=== PATIENT | male | born 1950 | race Hispanic/Latino ===

== ENCOUNTER 2018-08-11 17:04 | Inpatient (IN) | payer MEDICARE, MEDICAID ==
--- NOTE | 2018-08-11 18:10 | ED PDOC ---
Arrival/HPI - History of Present Illness Narrative History of Present Illness (Text): 08/11/18 19:18 67 y/o male with PMH of bipolar presents to the ED with brother for psychiatric evaluation per his pyschiatrist Dr. Ahn for increased agitation. States he takes his seroquel and klonapin as prescribed before bed. Last saw his psychiatrist in June. C/o mild bilateral "rotator cuff pain" but refusing pain medication. Denies SI, HI, hallucination, chest pain, SOB, fevers, chills, abdominal pain, N/V/D, back pain, neck pain, headache, dizziness, or any other associated symptoms. <Anahi Pearce - Last Filed: 08/11/18 19:30> <Natasha Thomas A - Last Filed: 08/11/18 21:22> - General Chief Complaint: Psychiatric Evaluation Time Seen by Provider: 08/11/18 17:22 Past Medical History - Provider Review Nursing Documentation Reviewed: Yes <Anahi Pearce - Last Filed: 08/11/18 19:30> Family/Social History - Physician Review Nursing Documentation Reviewed: Yes Family/Social History: No Known Family HX <Anahi Pearce - Last Filed: 08/11/18 19:30> Allergies/Home Meds <Anahi Pearce - Last Filed: 08/11/18 19:30> <Natasha Thomas A - Last Filed: 08/11/18 21:22> Allergies/Adverse Reactions: Allergies No Known Allergies Allergy (Verified 08/11/18 18:27) Review of Systems - Physician Review All systems were reviewed & negative as marked: Yes - Review of Systems Constitutional: Normal. absent: Fevers Eyes: Normal. absent: Vision Changes ENT: Normal. absent: Sore Throat, Sinus Congestion Respiratory: Normal. absent: SOB, Cough Cardiovascular: Normal. absent: Chest Pain, Palpitations Gastrointestinal: Normal. absent: Abdominal Pain, Stool Changes, Nausea, Vomiting, Appetite Changes Genitourinary Male: Normal. absent: Dysuria, Frequency Musculoskeletal: Normal. absent: Back Pain, Neck Pain Skin: Normal. absent: Rash Neurological: Normal. absent: Headache, Dizziness, Focal Weakness Endocrine: Normal Hemo/Lymphatic: Normal Psychiatric: Normal <Anahi Pearce - Last Filed: 08/11/18 19:30> Physical Exam Vital Signs Reviewed: Yes Temperature: Afebrile Blood Pressure: Normal Pulse: Regular Respiratory Rate: Normal Appearance: Positive for: Well-Appearing, Non-Toxic, Comfortable Pain Distress: None Mental Status: Positive for: Alert and Oriented X 3, Agitated - Systems Exam Head: Present: Atraumatic, Normocephalic Pupils: Present: PERRL Extroacular Muscles: Present: EOMI Conjunctiva: Present: Normal Mouth: Present: Moist Mucous Membranes Neck: Present: Normal Range of Motion Respiratory/Chest: Present: Clear to Auscultation, Good Air Exchange. No: Respiratory Distress, Accessory Muscle Use Cardiovascular: Present: Regular Rate and Rhythm, Normal S1, S2. No: Murmurs Abdomen: Present: Normal Bowel Sounds. No: Tenderness, Distention, Peritoneal Signs Back: Present: Normal Inspection Upper Extremity: Present: Normal Inspection, Normal ROM, NORMAL PULSES, Neurovascularly Intact, Capillary Refill < 2s. No: Cyanosis, Edema, Temperature Abnormalties Lower Extremity: Present: Normal Inspection, NORMAL PULSES, Normal ROM, Neurovascularly Intact, Capillary Refill < 2 s. No: Edema, Temperature Abnormalties Neurological: Present: GCS=15, CN II-XII Intact, Speech Normal, Motor Func Grossly Intact, Normal Sensory Function, Gait Normal Skin: Present: Warm, Dry, Normal Color. No: Rashes Lymphatic: No: Cervical Adenopathy Psychiatric: Present: Alert, Oriented x 3, Anxious, Agitated, Other (Manic, speaking in fast short sentences.). No: Suicidal Ideation, Homicidal Ideation <Anahi Pearce - Last Filed: 08/11/18 19:30> Medical Decision Making ED Course and Treatment: 08/11/18 19:30 Initial Plan: * CBC, CMP * Alcohol, salicylate, acetaminophen * EKG * CXR * PES Evaluation Labwork unremarkable. 20:00 Patient care signed out to Natasha Thomas PA-C pending PES evaluation, urine, EKG, and CXR. Patient made aware of change in disposition. <Anahi Pearce - Last Filed: 08/11/18 19:30> - Lab Interpretations Lab Results: Total Bilirubin 0.7 mg/dL (0.2-1.3) 08/11/18 19:18 AST 26 U/L (17-59) 08/11/18 19:18 ALT 31 U/L (7-56) 08/11/18 19:18 Alkaline Phosphatase 79 U/L (38-126) 08/11/18 19:18 Total Protein 7.9 g/dL (5.8-8.3) 08/11/18 19:18 Albumin 4.4 g/dL (3.0-4.8) 08/11/18 19:18 Globulin 3.4 gm/dL 08/11/18 19:18 Albumin/Globulin Ratio 1.3 (1.1-1.8) 08/11/18 19:18 Urine Color Yellow (YELLOW) 08/11/18 20:27 Urine Appearance Sl cloudy (CLEAR) 08/11/18 20:27 Urine pH 6.5 (4.7-8.0) 08/11/18 20:27 Ur Specific [place] 1.020 (1.005-1.035) 08/11/18 20:27 Urine Protein Trace mg/dL (<30 mg/dL) H 08/11/18 20:27 Urine Glucose (UA) Negative mg/dL (NEGATIVE) 08/11/18 20:27 Urine Ketones Negative mg/dL (NEGATIVE) 08/11/18 20:27 Urine Blood Large (NEGATIVE) H 08/11/18 20:27 Urine Nitrate Negative (NEGATIVE) 08/11/18 20:27 Urine Bilirubin Negative (NEGATIVE) 08/11/18 20:27 Urine Urobilinogen 0.2 E.U./dL (<1 E.U./dL) 08/11/18 20:27 Ur Leukocyte Esterase Large Jossue/uL (NEGATIVE) H 08/11/18 20:27 Urine RBC Tntc /hpf (0-2) H 08/11/18 20:27 Urine WBC 15 - 20 /hpf (0-6) H 08/11/18 20:27 Ur Epithelial Cells Many /hpf (0-5) H 08/11/18 20:27 - RAD Interpretation Radiology Orders: 08/11/18 18:33 CHEST PORTABLE [RAD] Stat - Medication Orders Current Medication Orders: Acetaminophen (Tylenol 325mg Tab) 650 mg PO Q4H PRN PRN Reason: Pain, Mild (1-3) Al Hydrox/Mg Hydrox/Simethicone (Maalox Plus 30 Ml) 30 ml PO DAILY PRN PRN Reason: Upset Stomach Cephalexin Monohydrate (Keflex) 500 mg PO STAT STA; Protocol Stop: 08/11/18 21:21 Clonazepam (Klonopin) 2 mg PO HS MITCHELL; Protocol Magnesium Hydroxide (Milk Of Magnesia) 30 ml PO DAILY PRN PRN Reason: Constipation Quetiapine Fumarate (Seroquel) 100 mg PO HS MITCHELL; Protocol <WilliamHappiness A - Last Filed: 08/11/18 21:22> Disposition/Present on Arrival <Anahi Pearce - Last Filed: 08/11/18 19:30> - Present on Arrival Any Indicators Present on Arrival: No History of DVT/PE: No History of Uncontrolled Diabetes: No Urinary Catheter: No History of Decub. Ulcer: No History Surgical Site Infection Following: None - Disposition Have Diagnosis and Disposition been Completed?: Yes Disposition Time: 21:20 Patient Plan: Admission <Natasha Thomas A - Last Filed: 08/11/18 21:22> - Disposition Diagnosis: Bipolar 1 disorder Disposition: HOSPITALIZED Condition: FAIR Forms: [employer] (Senegalese)
[2018-08-11 18:27] VITALS: BMI 26.4
[2018-08-11 19:26] LABS: BASO # 0.01 K/mm3 (0.0-2.0); BASO % 0.1 % (0.0-3.0); EOS # 0.1 (0.0-0.7); EOS % 0.9 % (1.5-5.0); HEMOGLOBIN 15.1 g/dL (14.0-18.0); LYMPH # 2.8 (1.2-3.4); LYMPH % 33.6 % (22.0-35.0); MEAN CELL VOLUME 88.5 fl (80.0-105.0); MEAN CORPUSCULAR HGB CONC 33.9 g/dl (31.0-37.0); MEAN PLATELET VOLUME 10.4 fl (7.0-11.0); MONO # 0.6 (0.1-0.6); MONO % 7.4 % (1.0-6.0); RBC 5.04 10^6/uL (3.5-6.1); RED CELL DISTRIBUTION WIDTH 13.8 % (11.5-14.5); WHITE BLOOD COUNT 8.2 10^3/uL (4.5-11.0)
[2018-08-11 19:46] LABS: ACETAMINOPHEN < 10.0 ug/ml (10.0-20.0); SALICYLATE < 1 mg/dL (2.0-20.0)
[2018-08-11 19:48] LABS: ALB/GLOB RATIO 1.3 (1.1-1.8); ALBUMIN 4.4 g/dL (3.0-4.8); ALT/SGPT 31 U/L (7-56); AST/SGOT 26 U/L (17-59); BLOOD UREA NITROGEN 19 mg/dL (7-21); CALCIUM 10.3 mg/dL (8.4-10.5); GFR NON-AFRICAN AMERICAN > 60
[2018-08-11] MEDS ORDERED: Magnesium Hydroxide Susp 30 ml UD PO PRN (20:14)
[2018-08-11 20:31] LABS: PH,URINE 6.5 (4.7-8.0); URINE APPEARANCE SL CLOUDY (CLEAR); URINE BILIRUBIN NEGATIVE (NEGATIVE); URINE BLOOD LARGE (NEGATIVE); URINE COLOR YELLOW (YELLOW); URINE GLUCOSE (UA) NEGATIVE (NEGATIVE); URINE LEUKOCYTE ESTERASE LARGE Leu/uL (NEGATIVE); URINE PROTEIN TRACE mg/dL (<30 mg/dL); URINE UROBILINOGEN 0.2 E.U./dL (<1 E.U./dL)
[2018-08-11 20:36] LABS: URINE EPITHELIAL CELLS MANY /hpf (0-5); URINE RBC TNTC /hpf (0-2); URINE WBC 15 - 20 /hpf (0-6)
[2018-08-11 20:57] LABS: BARBITURATES, UR NEGATIVE (NEGATIVE); BENZODIAZEPINES, UR NEGATIVE (NEGATIVE); OPIATES, UR NEGATIVE (NEGATIVE); PHENCYCLIDINE, UR NEGATIVE (NEGATIVE)
[2018-08-11 23:06] VITALS: O2SAT 98
--- NOTE | 2018-08-12 00:47 | PCM.BM ---
<Laci Loaiza - Last Filed: 08/12/18 00:44> Treatment Plan Problems - Problems identified on initial assessmt AGITATION/AGGRESSIVE BEHAVIOR Date Initiated: 08/11/18 Time Initiated: 23:00 Assessment reference: NA Status: Active Priority: 1 INEFFECTIVE IMPULSE CONROL Date Initiated: 08/11/18 Time Initiated: 23:00 Assessment reference: NA Status: Active Priority: 2 HIGH RISK OF VIOLENCE Date Initiated: 08/11/18 Time Initiated: 23:00 Assessment reference: NA Status: Active Priority: 3 INEFFECIVE MEDICATION REGIMEN Date Initiated: 08/11/18 Time Initiated: 23:00 Assessment reference: NA Status: Active Priority: 4 Treatment assets and liabiliti Patient Assests: adapts well, cooperative, educated, self-reliant, ADL independent, physically healthy, negotiates basic needs, financial stabiity, cognitively intact Patient Liabilities: live alone, poor support system, relationship conflicts - Milieu Protocol Maintain good personal hygiene: every other day Encourage regular showers, every shift Remind patient to perform daily oral care, every shift Assist patient to perform ADL's Maintain personal safety: every shift Educate patient to report safety concerns to staff, every shift Monitor environment for contraband/sharps Medication safety: Monitor for expected outcome, potential side effects: every shift Family Contact Family involvement: Patient does not wish Family/SO involvement Family contact: Patient declines to allow family contact at present <Luisa Srinivasan - Last Filed: 08/13/18 14:39> Family Contact Family involvement: Family/SO is involved <Priscila Gonzalez - Last Filed: 08/14/18 12:01>
[2018-08-12 08:05] LABS: GLUCOSE,FASTING 92 mg/dL (65-110); HDL CHOLESTEROL 51 mg/dL (29-60)
[2018-08-12 08:15] LABS: LDL CHOLESTEROL 76 mg/dL (0-129)
--- NOTE | 2018-08-12 11:01 | CARD ---
APPROVED REPORT Date of service: 08/11/2018 EKG Measurement Heart [id number] <Conclusion> Normal sinus rhythm Normal ECG
--- NOTE | 2018-08-12 14:17 | RAD ---
Date of service: 08/11/2018 HISTORY: psych COMPARISON: No prior. FINDINGS: LUNGS: Dense right lower lobe infiltrate consistent with pneumonia. PLEURA: No significant pleural effusion identified, no pneumothorax apparent. CARDIOVASCULAR: No atherosclerotic calcification present Normal. OSSEOUS STRUCTURES: No significant abnormalities. VISUALIZED UPPER ABDOMEN: Normal. OTHER FINDINGS: None. IMPRESSION: Extensive right lower lobe infiltrate likely acute pneumonia. Follow-up to resolution recommended.
--- NOTE | 2018-08-12 20:56 | CON ---
DATE: 08/12/2018 HISTORY OF PRESENT ILLNESS: This is a 67-year-old male, who I was asked to see, who was admitted to the Psychiatry Unit by Dr. Beau Lopez for underlying bipolar disorder. ALLERGIES: THE PATIENT STATES THAT HE HAS NO KNOWN ALLERGIES. MEDICATIONS: His active medications consist of Klonopin 2 mg at bedtime, Maalox Plus 30 mL p.r.n. daily, magnesium, milk of magnesia 30 mL daily p.r.n., Protonix 40 mg at bedtime, Seroquel 200 mg a.m. at bedtime, Seroquel 50 mg every 4 hours p.r.n., and Tylenol 650 mg p.o. every 4 hours p.r.n. SOCIAL HISTORY: He gives a social history where he states he is a nonsmoker, nondrinker. PAST MEDICAL HISTORY: His medical history he states that he in 2009 had an esophageal surgical procedure for esophageal cancer at [facility] subsequently treated with chemotherapy afterwards. He states that he has not seen a film processing utility worker recently, but recently planned on seeing one in [place] by the name of Dr. Conway. He sees a medical doctor in [place]. PHYSICAL EXAMINATION: VITAL SIGNS: His temperature is 98.7, his blood pressure is 120/78, his respiratory rate is 20. His oxygen saturation is reported 98% on room air. NECK: His neck is supple. LUNGS: His lungs show rhonchi with diminished breath sounds at the right. HEART: S1, S2 rhythm. ABDOMEN: Soft with positive bowel sounds. EXTREMITIES: At this time show no evidence of edema. NEURO: Neurologically he is alert and oriented x3. He denies any particular medical complaints at this time. LABORATORY DATA: WBC is 8.2, RBC is 5.04, hemoglobin 15.1, hematocrit 44.6, platelet count is 215. Chemistry shows normal electrolytes. The BUN is 19, the creatinine is 1, calcium is 10.3. Fasting blood sugar is 92. LFTs are normal. His TSH is 4.05. Cholesterol is 145, triglycerides 50, HDL is 51. LFTs are normal. Drug screen is negative. Urinalysis is showing trace protein, large blood, large leukocyte esterase, too numerous to count rbc's, 15-20 wbc's, and many epithelial cells. Chest x-ray is reported by the radiologist to show a dense right lower lobe infiltrate consistent with pneumonia. His electrocardiogram reported showing a normal sinus rhythm. In the emergency room, he was given a dose of Keflex 500 mg p.o. Urine culture was reordered. IMPRESSION: This is a 67-year-old male, admitted to the psychiatric unit for bipolar disorder, found to have; 1. An abnormal urinalysis. 2. An abnormal chest x-ray. PLAN: 1. I have discussed the case with the staff and with Dr. Lopez as well as with Urology and Infectious Disease. We will request evaluations. PSA, urine cytology, urinalysis, repeat urine culture, ultrasound of the bladder with postvoid residual, ultrasound of the kidneys, urine cytology. 2. Follow up the patient's labs. 3. We will follow the patient clinically and await input from the individual consultants at this time. Further treatment plan pending the results of diagnostic studies and then any further information that the patient may offer. Thank you for allowing to participate in the care of this patient. Marielos Lamb MD
[2018-08-12] MEDS: Pantoprazole 40 mg EC Tab PO SCH (21:31)
[2018-08-12 22:13] LABS: URINE BILIRUBIN NEGATIVE (NEGATIVE); URINE BLOOD MODERATE (NEGATIVE); URINE GLUCOSE (UA) NEGATIVE (NEGATIVE); URINE LEUKOCYTE ESTERASE LARGE Leu/uL (NEGATIVE); URINE PROTEIN TRACE mg/dL (<30 mg/dL); URINE UROBILINOGEN 0.2 E.U./dL (<1 E.U./dL)
[2018-08-12 22:17] LABS: URINE APPEARANCE CLOUDY (CLEAR); URINE COLOR YELLOW (YELLOW); URINE RBC 25 - 30 /hpf (0-2); URINE WBC TNTC /hpf (0-6)
--- NOTE | 2018-08-12 23:41 | PCM.URO ---
Urology Progress Note - Subjective Other: gu plans: cytology, urine culture, ultrasound ,. will need follow up most mattkly as an out pt. full note to be dictated - Objective Lab Results Last 24 Hours: Laboratory Results - last 24 hr 08/12/18 08/12/18 08/12/18 07:30 07:30 15:00 Fasting Glucose 92 Triglycerides 50 Cholesterol 145 LDL Cholesterol Direct 76 HDL Cholesterol 51 Prostate Specific Ag 2.7 H TSH 3rd Generation 4.05 Urine Color Urine Appearance Urine pH Ur Specific [place] Urine Protein Urine Glucose (UA) Urine Ketones Urine Blood Urine Nitrate Urine Bilirubin Urine Urobilinogen Ur Leukocyte Esterase Urine RBC Urine WBC Ur Epithelial Cells 08/12/18 22:10 Fasting Glucose Triglycerides Cholesterol LDL Cholesterol Direct HDL Cholesterol Prostate Specific Ag TSH 3rd Generation Urine Color Yellow Urine Appearance Cloudy Urine pH 6.0 Ur Specific [place] 1.020 Urine Protein Trace H Urine Glucose (UA) Negative Urine Ketones Negative Urine Blood Moderate H Urine Nitrate Negative Urine Bilirubin Negative Urine Urobilinogen 0.2 Ur Leukocyte Esterase Large H Urine RBC 25 - 30 H Urine WBC Tntc H Ur Epithelial Cells 3 - 4 Vital Signs: Vital Signs - 24 hr 08/11/18 08/12/18 23:40 16:00 Pulse Rate 71 Respiratory 20 Rate Blood Pressure 120/78
[2018-08-13 08:18] LABS: BASO # 0.01 K/mm3 (0.0-2.0); BASO % 0.2 % (0.0-3.0); EOS # 0.2 (0.0-0.7); HEMOGLOBIN 15.5 g/dL (14.0-18.0); LYMPH # 3.4 (1.2-3.4); LYMPH % 55.5 % (22.0-35.0); MEAN CELL VOLUME 88.5 fl (80.0-105.0); MEAN CORPUSCULAR HEMOGLOBIN 29.7 pg (25.0-35.0); MEAN CORPUSCULAR HGB CONC 33.5 g/dl (31.0-37.0); MONO # 0.6 (0.1-0.6); MONO % 10.5 % (1.0-6.0); RBC 5.22 10^6/uL (3.5-6.1); RED CELL DISTRIBUTION WIDTH 13.7 % (11.5-14.5); WHITE BLOOD COUNT 6.1 10^3/uL (4.5-11.0)
[2018-08-13 08:32] LABS: ALB/GLOB RATIO 1.3 (1.1-1.8); ALBUMIN 4.4 g/dL (3.0-4.8); ALT/SGPT 31 U/L (7-56); AST/SGOT 26 U/L (17-59); BLOOD UREA NITROGEN 16 mg/dL (7-21); CALCIUM 10.2 mg/dL (8.4-10.5); GFR NON-AFRICAN AMERICAN > 60
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
[2018-08-13] MEDS: Cefpodoxime (Vantin) 200 mg Tab PO SCH ×2 (10:35→17:49)
--- NOTE | 2018-08-13 13:39 | PN ---
DATE: 08/13/2018 SUBJECTIVE: A 67-year-old male on the Psychiatry Unit. The patient is being admitted for bipolar disorder. OBJECTIVE: VITAL SIGNS: His temperature is 97.8, his blood pressure is 120/78, respiratory rate is 18, oxygen saturation is 98% on room air. GENERAL: He is alert and oriented x3. LUNGS: Show rhonchi at the base, right. HEART: S1, S2. ABDOMEN: Soft with positive bowel sounds. EXTREMITIES: No evidence of edema. LABORATORY DATA: Shows a WBC of 6.1, RBC 5.22, hemoglobin 15.5, hematocrit 46.2, platelet count 188. Chemistry shows a sodium 139, potassium 4.9, chloride 104, CO2 of 31. The BUN is 16, creatinine is 1. LFTs are normal. His prostate-specific antigen is 2.7. Repeat urinalysis shows large leukocyte esterase with 25-30 rbc's, too numerous to count wbc's, moderate blood. ASSESSMENT AND PLAN: Currently, the patient is on Doryx 100 mg every 12 hours and Vantin 200 mg every 12 hours. Microbiological studies are pending. He is found to have had a urinary tract infection with infiltrate on the right lung. He will continue on his psychiatry medications, being followed by Dr. Lopez, we will await identification of microbiological studies. All clinical findings to date have been discussed with the patient. Marielos Lamb MD
--- NOTE | 2018-08-13 14:51 | US ---
Date of service: 08/12/2018 PROCEDURE: Ultrasound of the Kidneys HISTORY: microscopic heamaturia COMPARISON: None available. TECHNIQUE: Sonogram of the kidneys. FINDINGS: RIGHT KIDNEY: Measures: cm. Normal in size, contour and echogenicity. No stone, solid mass lesion or hydronephrosis visualized. LEFT KIDNEY: Measures: cm. Normal in size, contour and echogenicity. No stone, solid mass lesion or hydronephrosis visualized. OTHER FINDINGS: Bilateral renal cysts measure up to 3.9 centimeters in the right lower pole and 6.2 centimeters in the upper pole. IMPRESSION: Bilateral renal cysts measure up to 3.9 centimeters in the right lower pole and 6.2 centimeters in the upper pole.
--- NOTE | 2018-08-13 14:52 | US ---
Date of service: 08/12/2018 PROCEDURE: Ultrasound of the Bladder HISTORY: microscopic heamaturia/ post void residual COMPARISON: None available. TECHNIQUE: Sonographic evaluation of the bladder was performed. FINDINGS: Unremarkable without wall thickening or intraluminal debris. No calculus or gross mass lesion. No free fluid in pelvis. Prevoid Volume: 1673 cc. Post void residual: 504 cc. Bladder jets not visualized. IMPRESSION: Large postvoid residual.
--- NOTE | 2018-08-13 15:15 | CT ---
Date of service: 08/13/2018 PROCEDURE: CT Chest without contrast HISTORY: r/o pneumonia COMPARISON: None available. TECHNIQUE: Contiguous axial images were obtained through the chest without intravenous contrast enhancement. Sagittal and coronal reconstructions were performed. Radiation dose: Total exam DLP = 362.86 mGy-cm. This CT exam was performed using one or more of the following dose reduction techniques: Automated exposure control, adjustment of the mA and/or kV according to patient size, and/or use of iterative reconstruction technique. FINDINGS: LUNGS: Clear lungs. Visualized airway clear MEDIASTINUM: Unremarkable thoracic aorta. No aneurysm. Normal sized heart. Status post esophagectomy and gastric interposition. No lymphadenopathy. No aortic atherosclerotic calcification. PLEURA: No pleural fluid. No pneumothorax. BONES: No fracture. No destructive lesion. UPPER ABDOMEN: 5.4 centimeter left upper pole renal cyst. OTHER FINDINGS: None. IMPRESSION: Status post esophagectomy and gastric interposition. No evidence of pneumonia.
[2018-08-13] MEDS: Pantoprazole 40 mg EC Tab PO SCH (21:33)
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
[2018-08-14] MEDS: Cefpodoxime (Vantin) 200 mg Tab PO SCH (07:02)
--- NOTE | 2018-08-14 14:21 | CP.PCM.PN ---
Subjective - Date & Time of Evaluation Date of Evaluation: 08/14/18 Time of Evaluation: 11:30 - Subjective Subjective: Comfortable, no cough, no fevers, has some urinary retention, no nausea, no diarrhea. Objective - Vital Signs/Intake and Output Vital Signs (last 24 hours): Temp Pulse Resp BP Pulse Ox 97.8 F 81 18 117/86 98 08/13/18 06:58 08/13/18 16:00 08/13/18 06:58 08/13/18 16:00 08/11/18 22:45 - Medications Medications: Current Medications Acetaminophen (Tylenol 325mg Tab) 650 mg PO Q4H PRN PRN Reason: Pain, Mild (1-3) Al Hydrox/Mg Hydrox/Simethicone (Maalox Plus 30 Ml) 30 ml PO DAILY PRN PRN Reason: Upset Stomach Cefpodoxime Proxetil (Vantin) 200 mg PO Q12 [facility]; Protocol Last Admin: 08/14/18 07:02 Dose: 200 mg Clonazepam (Klonopin) 2 mg PO HS [facility]; Protocol Last Admin: 08/13/18 21:33 Dose: 2 mg Doxycycline Hyclate (Doryx) 100 mg PO Q12 [facility]; Protocol Last Admin: 08/14/18 07:01 Dose: 100 mg Magnesium Hydroxide (Milk Of Magnesia) 30 ml PO DAILY PRN PRN Reason: Constipation Pantoprazole Sodium (Protonix Ec Tab) 40 mg PO HS [facility] Last Admin: 08/13/18 21:33 Dose: 40 mg Quetiapine Fumarate (Seroquel) 50 mg PO Q4H PRN; Protocol PRN Reason: Agitation Quetiapine Fumarate (Seroquel) 300 mg PO AMHS [facility]; Protocol Last Admin: 08/13/18 21:33 Dose: 300 mg - Labs Labs: 08/13/18 08:00 08/13/18 08:00 - Constitutional Appears: Chronically Ill - Head Exam Head Exam: NORMAL INSPECTION - Neck Exam Neck Exam: absent: Meningismus - Respiratory Exam Respiratory Exam: Decreased Breath Sounds - Cardiovascular Exam Cardiovascular Exam: +S1, +S2 - GI/Abdominal Exam GI & Abdominal Exam: Soft. absent: Tenderness Assessment and Plan - Assessment and Plan (Free Text) Plan: assessment consider Staph lugdunensis UTI in this patient with urinary retention no pneumonia noted on CT chest - shadow noted on CXR probable from the stomach pulled up after esophagectomy esophageal cancer S/P esophagectomy bipolar disorder Plan will switch antibiotics to Keflex patient will be seen by Urology after his stay in the Psych unit as per Dr. Lamb will monitor clinically
[2018-08-14 16:49] LABS: TOTAL PSA 3.1 ng/mL (< or = 4.0)
--- NOTE | 2018-08-14 18:02 | PN ---
DATE: 08/14/2018 SUBJECTIVE: This is 67-year-old male on the psychiatry unit, patient of Dr. Lopez. The patient is being treated for exacerbation of his bipolar disorder. OBJECTIVE: VITAL SIGNS: His temp is 98.1, his pulse is 81, blood pressure is 117/86, respiratory rate is 18. GENERAL: He offers no specific complaints this morning. LUNGS: Show diminished breath sounds at the bases. HEART: In S1, S2 rhythm. ABDOMEN: Soft with positive bowel sounds. EXTREMITIES: Shows no evidence of edema. LABORATORY DATA: Microbiological studies show a urine culture growing a Staphylococcus lugdunensis. His procalcitonin is 0.05. His TSH is 4.05. ASSESSMENT AND PLAN: He had a chest CT which showed no evidence of pneumonia and the radiologist states that the finding on the chest x-ray room relates to his esophageal surgery for cancer with a gastric pull-up. This was explained to the patient. I have spoken to the urologist Dr. Johnny Toney who is aware of the findings of the bladder ultrasound with the postvoid residual. He recommends starting the patient on Flomax at this time and continuing antibiotics to treat the urinary tract infection and this has been discussed with Infectious Disease. It has also been discussed with Dr. Lopez. Continue current level of care. Marielos Lamb MD
[2018-08-14] MEDS: Pantoprazole 40 mg EC Tab PO SCH (21:47)
--- NOTE | 2018-08-14 23:30 | PCM.PYCHPN ---
Psychiatric Progress Note - Psychiatric Progress Note Patient seen today, length of contact: 30min Patient Chief Complaint: Patient has been under my care for more than 20 years. His brother who often supervise him and help support him financially expressed concern as the patient had become more agitated and paranoid over the past 2-3 weeks. Several events had interceded the. The last model department supervisor of the living residency where he resides in [facility] she expressed concern about his [place] bizarre behavior which consisted of pacing, agitation and some paranoia. The brother is subsequently found that he received a head animal keeper as a letter from the [employer] although he is not sure of the content. Patient has told nursing here that he may have been accused of sexual harassment. 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 He has on occasion become very agitated simulating either a bipolar disorder or a chronic paranoid schizophrenic disorder although these latter 2 diagnoses may be too s evere and not capture the full thrust of the patient's behavioral repertoire. He was last hospitalized approximately 20-30 years ago (I will check my records) In the past he has been resentful the parenting by his parents, the perceived favoritism given to his brother who appears to be more functional (and is a licensed master social worker at [facility] psychiatric unit). He has seen numerous mental health workers in psychotherapy and several psychiatrists. He has held a number of jobs. He has often wanted to have a significant relationship but his odd, eccentric, abrasive behavior has prevented this from happening. In the pace past several years he has been treated for esophageal cancer at [facility]. Problems Identified/Issues Discussed: Patient remains paranoid, angry, with pressured speech, much rationalization and denial He was interviewed and treatment team. He makes accusations and that his brother and the disposition are in cahoots to get money out of him. The He had some difficulties with the [employer] that necessitated that they send him a business law teacher letter, the content of which is unknown (but for which his brother is trying to gain a copy of them ( The patient can be intimidating in his agitation. He does not appear to be overtly sexually preoccupied, at least to the extent that he does not focus on or talk about sexual issues unless specifically asked (a such as an old girlfriend pinching his genitals) Medical Problems: These appear to be not as problematic problematic as initially thought He is a cancer (esophageal) survivor. His pulmonary status is being monitored by Dr. Lamb as well as his urologic status. Diagnostic Results: Results of lung imaging do not presently show pneumonia DSM 5 Symptoms Update: Patient remains on the verge of hostility. Is angry, paranoid, condescending, accusatory that I am involved in a financial plot with his brother. Speech somewhat pressured. Seems to be tolerating high dose of Seroquel which has yet to induce its desired effect on tapering patient's level of agitation and hostility. Medication Change: Yes (Seroquel dose increased) Medical Record Reviewed: Yes Consults ordered or reviewed: Pulmonology, internal medicine consults reviewed Mental Status Examination - Cognitive Function Orientation: Person, Place, Situation, Time Memory: Intact Attention: WNL Concentration: WNL Association: WNL Fund of Knowledge: [facility] Decription of patient's judgement and insights: Patient has poor insight and poor judgment and much denial about his present state and is not willing to talk about potential precipitants to his present altered mental status - Mood Mood: Anxious, Other - Affect Affect: Other - Speech Speech: Loud, Pressured - Formal Thought Process Formal Thought Process: Paranoia, Other Psychotic Thoughts and Behaviors: Patient's paranoia may be delusional in intensity - Suicidal Ideation Suicidal Ideation: No - Homicidal Ideation Homicidal Ideation: No Goal/Treatment Plan - Goal/Treatment Plan Progress Toward Problem(s) and Goals/Treatment Plan: Will adjust medication and get further details of recent potential precipitants to patient's present problematic behavior Patient remains agitated, with pressured speech, angry, accusatory. His Seroquel doses have been increased On August 14 have reviewed both nursing notes and notes from social work. Plans for discharge are premature at this juncture given the patient's levelofin . Stability. This may be the most sustained period of agitation I have experienced in my course of treatment with this patient
[2018-08-15] MEDS: Alum-Mag Hydrox-Simethicone Susp (30 mL) PO PRN (03:08)
--- NOTE | 2018-08-15 10:21 | PN ---
DATE: 08/15/2018 SUBJECTIVE: Nursing staff relates that there were no problems during the night. OBJECTIVE: VITAL SIGNS: His temperature is 98.2, his pulse is 69, his blood pressure is 114/86, respiratory rate is 20. LABORATORY DATA: 1. Microbiological studies show a urine culture with Staphylococcus lugdunensis. He is currently being followed by Infectious Disease and has been placed on Keflex. 2. After discussion with Urology regarding diagnostic study results, it has been recommended that the patient be placed on Flomax, treat the urinary tract infection and then follow up with urology. This has been fully discussed with the patient. Also he is aware that the CAT scan of the chest did not show any evidence of pneumonia. 3. We also discussed the fact that he is to continue his care at this time with Dr. Lopez in the medical management. He seems to understand everything at this point and will continue current level of care. Marielos Lamb MD
--- NOTE | 2018-08-15 13:47 | PCM.PYCHPN ---
Psychiatric Progress Note - Psychiatric Progress Note Patient seen today, length of contact: 30min Patient Chief Complaint: Patient has been under my care for more than 20 years. His brother who often supervise him and help support him financially expressed concern as the patient had become more agitated and paranoid over the past 2-3 weeks. Several events had interceded the. The hotel or motel cleaning supervisor of the living residency where he resides in [facility] she expressed concern about his [place] bizarre behavior which consisted of pacing, agitation and some paranoia. The brother is subsequently found that he received a mission systems engineer as a letter from the [employer] although he is not sure of the content. Patient has told nursing here that he may have been accused of sexual harassment. 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 He has on occasion become very agitated simulating either a bipolar disorder or a chronic paranoid schizophrenic disorder although these latter 2 diagnoses may be too s evere and not capture the full thrust of the patient's behavioral repertoire. He was last hospitalized approximately 20-30 years ago (I will check my records) In the past he has been resentful the parenting by his parents, the perceived favoritism given to his brother who appears to be more functional (and is a director social at [facility] psychiatric unit). He has seen numerous mental health workers in psychotherapy and several psychiatrists. He has held a number of jobs. He has often wanted to have a significant relationship but his odd, eccentric, abrasive behavior has prevented this from happening. In the pace past several years he has been treated for esophageal cancer at [facility]. Problems Identified/Issues Discussed: Patient remains paranoid, angry, with pressured speech, much rationalization and denial He was interviewed and treatment team. He makes accusations and that his brother and the disposition are in cahoots to get money out of him. The He had some difficulties with the [employer] that necessitated that they send him a database reporting consultant letter, the content of which is unknown (but for which his brother is trying to gain a copy of them ( The patient can be intimidating in his agitation. He does not appear to be overtly sexually preoccupied, at least to the extent that he does not focus on or talk about sexual issues unless specifically asked (a such as an old girlfriend pinching his genitals) Medical Problems: These appear to be not as problematic problematic as initially thought He is a cancer (esophageal) survivor. His pulmonary status is being monitored by Dr. Lamb as well as his urologic status. Diagnostic Results: Results of lung imaging do not presently show pneumonia DSM 5 Symptoms Update: While the patient is less agitated presently he remains paranoid. He is accusing the hospital of having stolen at least 1 of his emetics at medicines when he came into the emergency room. He is indicating that when he leaves the hospital he will call the police who will launch an investigation etc. I have reviewed his situation with social work. She has been in touch with the patient's brother and we have learned that the patient was accused of sexual harassment of a adolescent to the [employer] and received a letter of accusation or warning from that young adults mission systems engineer. This legal involvement may be a major source of the patient's present exacerbation or relapse of his psychiatric disorder, be it paranoid schizophrenia or paranoid personality. He does seem to be calming down at least regarding his anger level and intrusiveness with high dose of Seroquel but he presently remains paranoid and can still be easily excited. Medication Change: Yes (Seroquel dose increased) Medical Record Reviewed: Yes Consults ordered or reviewed: Pulmonology, internal medicine consults reviewed Mental Status Examination - Cognitive Function Orientation: Person, Place, Situation, Time Memory: Intact Attention: WNL Concentration: WNL Association: WNL Fund of Knowledge: WN Decription of patient's judgement and insights: Patient has poor insight and poor judgment and much denial about his present state and is not willing to talk about potential precipitants to his present altered mental status - Mood Mood: Anxious, Other - Affect Affect: Other - Speech Speech: Loud, Pressured - Formal Thought Process Formal Thought Process: Paranoia, Other Psychotic Thoughts and Behaviors: Patient's paranoia may be delusional in intensity - Suicidal Ideation Suicidal Ideation: No - Homicidal Ideation Homicidal Ideation: No Goal/Treatment Plan - Goal/Treatment Plan Progress Toward Problem(s) and Goals/Treatment Plan: Will adjust medication and get further details of recent potential precipitants to patient's present problematic behavior Patient remains agitated, with pressured speech, angry, accusatory. His Seroquel doses have been increased On August 14 have reviewed both nursing notes and notes from social work. Plans for discharge are premature at this juncture given the patient's levelofin . Stability. This may be the most sustained period of agitation I have experienced in my course of treatment with this patient On August 15 patient appears to be less agitated but upon questioning remains paranoid although less reactively so. 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 This has been the something that the patient has denied
--- NOTE | 2018-08-15 13:56 | CP.PCM.PN ---
<Nicolas English - Last Filed: 08/15/18 13:56> Subjective - Date & Time of Evaluation Date of Evaluation: 08/15/18 Time of Evaluation: 07:40 - Subjective Subjective: Infectious disease progress note: Pt seen and examined at bedside. No acute events overnight. Patient denies any abdominal pain or urinary changes including no dysuria or frequency. No fevers. 12 Point ROS neg other than stated above Objective - Vital Signs/Intake and Output Vital Signs (last 24 hours): Temp Pulse Resp BP Pulse Ox 98.2 F 69 20 114/86 98 08/15/18 07:10 08/15/18 07:10 08/15/18 07:10 08/15/18 07:10 08/11/18 22:45 - Medications Medications: Current Medications Acetaminophen (Tylenol 325mg Tab) 650 mg PO Q4H PRN PRN Reason: Pain, Mild (1-3) Al Hydrox/Mg Hydrox/Simethicone (Maalox Plus 30 Ml) 30 ml PO DAILY PRN PRN Reason: Upset Stomach Last Admin: 08/15/18 03:08 Dose: 30 ml Cephalexin Monohydrate (Keflex) 500 mg PO Q8 [facility]; Protocol Last Admin: 08/15/18 06:17 Dose: 500 mg Clonazepam (Klonopin) 2 mg PO HS [facility]; Protocol Last Admin: 08/14/18 21:47 Dose: 2 mg Magnesium Hydroxide (Milk Of Magnesia) 30 ml PO DAILY PRN PRN Reason: Constipation Pantoprazole Sodium (Protonix Ec Tab) 40 mg PO HS [facility] Last Admin: 08/14/18 21:47 Dose: 40 mg Quetiapine Fumarate (Seroquel) 50 mg PO Q4H PRN; Protocol PRN Reason: Agitation Quetiapine Fumarate (Seroquel) 300 mg PO AMHS [facility]; Protocol Last Admin: 08/15/18 09:40 Dose: 300 mg Tamsulosin HCl (Flomax) 0.4 mg PO DAILY [facility] Last Admin: 08/15/18 09:40 Dose: 0.4 mg - Labs Labs: 08/13/18 08:00 08/13/18 08:00 - Constitutional Appears: No Acute Distress - Head Exam Head Exam: ATRAUMATIC, NORMOCEPHALIC - Eye Exam Eye Exam: EOMI - ENT Exam ENT Exam: Mucous Membranes Moist - Respiratory Exam Respiratory Exam: Clear to Ausculation Bilateral. absent: Rales, Wheezes - Cardiovascular Exam Cardiovascular Exam: REGULAR RHYTHM, +S1, +S2 - GI/Abdominal Exam GI & Abdominal Exam: Soft. absent: Tenderness - Extremities Exam Extremities Exam: absent: Calf Tenderness, Pedal Edema - Neurological Exam Neurological Exam: Alert, Awake, Oriented x3 - Psychiatric Exam Psychiatric exam: Normal Mood - Skin Skin Exam: Dry, Warm Assessment and Plan - Assessment and Plan (Free Text) Assessment: 59-year-old male with past medical history of bipolar and esophageal cancer s/p esophagectomy presents to the ED with increasing agitation. Patient was admitte d to the psychiatric floor for further management. Infectious disease consulted for a possible pneumonia. However the shadow on the chest x-ray likely secondary to esophagectomy. Continue antibiotics with Keflex for staph lucdunesisi in the urine Monitor for any changes Case and plan was reviewed and discussed with Dr. Swenson <Jim Swenson - Last Filed: 08/15/18 16:19> Objective - Vital Signs/Intake and Output Vital Signs (last 24 hours): Temp Pulse Resp BP Pulse Ox 98.2 F 69 20 114/86 98 08/15/18 07:10 08/15/18 07:10 08/15/18 07:10 08/15/18 07:10 08/11/18 22:45 - Medications Medications: Current Medications Acetaminophen (Tylenol 325mg Tab) 650 mg PO Q4H PRN PRN Reason: Pain, Mild (1-3) Al Hydrox/Mg Hydrox/Simethicone (Maalox Plus 30 Ml) 30 ml PO DAILY PRN PRN Reason: Upset Stomach Last Admin: 08/15/18 03:08 Dose: 30 ml Cephalexin Monohydrate (Keflex) 500 mg PO Q8 [facility]; Protocol Last Admin: 08/15/18 13:55 Dose: 500 mg Clonazepam (Klonopin) 2 mg PO HS [facility]; Protocol Last Admin: 08/14/18 21:47 Dose: 2 mg Magnesium Hydroxide (Milk Of Magnesia) 30 ml PO DAILY PRN PRN Reason: Constipation Pantoprazole Sodium (Protonix Ec Tab) 40 mg PO HS [facility] Last Admin: 08/14/18 21:47 Dose: 40 mg Quetiapine Fumarate (Seroquel) 50 mg PO Q4H [facility]N; Protocol PRN Reason: Agitation Quetiapine Fumarate (Seroquel) 300 mg PO AMHS [facility]; Protocol Last Admin: 08/15/18 09:40 Dose: 300 mg Tamsulosin HCl (Flomax) 0.4 mg PO DAILY [facility] Last Admin: 08/15/18 09:40 Dose: 0.4 mg - Labs Labs: 08/13/18 08:00 08/13/18 08:00 Assessment and Plan - Assessment and Plan (Free Text) Assessment: Infectious diseases Attending Physician Attestation Patient seen and examined, discussed with medical appointment scheduler. I have reviewed the patient's history of present illness, past medical, social, personal and family histories, pertinent physical exam findings, course so far in this hospital admission, pertinent laboratory and imaging results. I agree with the above findings, assessment and plan. In addition,patient with UTI with Staph lugdunensis - continue Keflex for up to [address] Lamb, patient will follow up with Urology after his stay in the Psych unit.
[2018-08-15] MEDS: Pantoprazole 40 mg EC Tab PO SCH (22:36)
--- NOTE | 2018-08-16 09:31 | PCM.PYCHPN ---
Psychiatric Progress Note - Psychiatric Progress Note Patient seen today, length of contact: 30min Problems Identified/Issues Discussed: I reviewed assessment and recent notes. I met with patient at bedside. Grooming appears adequate and he is oriented x3 with fair focus. Patient reports his mood as "well" and feels like he is improving. States "increasing the medications was a great help". He denies any new side effects, discomfort or pain. Thought process is coherent and patient denies any paranoid thoughts (though appeared paranoid about his brother the day prior). Delusions were not elicited. Patient has stayed mostly in his room and when he does come out into the unit, he keeps mostly to himself. There were no major behavioral issues overnight. Diagnostic Results: Paranoid Schizophrenia vs. Paranoid Personality Disorder Medication Change: Yes (Seroquel dose increased) Medical Record Reviewed: Yes Mental Status Examination - Cognitive Function Orientation: Person, Place, Situation, Time Memory: Intact Attention: WNL Concentration: WNL Association: WNL Fund of Knowledge: WNL - Mood Mood: Anxious, Other - Affect Affect: Other (labile) - Speech Speech: Appropriate, Pressured - Formal Thought Process Formal Thought Process: Paranoia, Other - Suicidal Ideation Suicidal Ideation: No - Homicidal Ideation Homicidal Ideation: No Goal/Treatment Plan - Goal/Treatment Plan Progress Toward Problem(s) and Goals/Treatment Plan: * c/w current tx and plan * Vitals reviewed and noted below: Selected Entries 08/15/18 08/15/18 07:10 15:00 Temperature 98.2 F 97.7 F Pulse Rate 69 73 Respiratory 20 20 Rate Blood Pressure 114/86 112/83
--- NOTE | 2018-08-16 14:48 | PN ---
DATE: 08/16/2018 SUBJECTIVE: This is a 67-year-old male in the Psychiatry Unit, admitted by Dr. Beau Lopez for bipolar disorder. The patient is sitting in the day room, states that he is having some discomfort over his shoulders, states that he was told by his primary care physician, who sent him for x-rays of his shoulders, that he has bilateral rotator cuff disorder. He is scheduled to see an orthopedist on the outside. This morning, the nursing staff relates that there were no specific problems, other than just complaint about some pain in the shoulders. PHYSICAL EXAMINATION: VITAL SIGNS: His temperature 97.5, his pulse is 63, his blood pressure is 109/69, and respiratory rate is 20. NECK: Supple. LUNGS: Clear. HEART: In S1 and S2 rhythm. ABDOMEN: Benign. EXTREMITIES: Show no evidence of edema. IMPRESSION AND PLAN: 1. The patient is receiving antibiotic therapy Keflex for urinary tract infection, being followed by Infectious Disease. 2. He has been placed on Flomax by Urology for urinary retention. 3. His does have a mild elevation of his prostate-specific antigen. 4. Urology recommends treating his infection with followup. 5. He is receiving psychiatric support and therapy for his bipolar disorder. 6. He has been offered the option of seeing an orthopedist here given his shoulder complaints and his information that he gave me regarding what his primary care doctor told him about his shoulders; however, he has refused. I have discussed this with the nursing staff. At the present time, he is on Klonopin 2 mg at bedtime, Keflex 500 mg every 8 hours, Flomax 0.4 mg daily. He is on Maalox Plus p.r.n., milk of magnesia p.r.n., Protonix 40 mg daily for reflux, Seroquel 50 mg every 4 hours p.r.n. agitation, Seroquel 300 mg p.o. in the morning and at bedtime, and Tylenol 2 tablets every 4 hours p.r.n. for mild pain. We will follow up the patient's labs. Marielos Lamb MD [facility] # [id number]
--- NOTE | 2018-08-16 17:12 | CP.PCM.PN ---
Subjective - Date & Time of Evaluation Date of Evaluation: 08/16/18 Time of Evaluation: 13:40 - Subjective Subjective: Comfortable on a chair, no fevers, not in distress. Objective - Vital Signs/Intake and Output Vital Signs (last 24 hours): Temp Pulse Resp BP Pulse Ox 97.5 F L 63 20 109/69 98 08/16/18 07:29 08/16/18 07:29 08/16/18 07:29 08/16/18 07:29 08/11/18 22:45 - Medications Medications: Current Medications Acetaminophen (Tylenol 325mg Tab) 650 mg PO Q4H PRN PRN Reason: Pain, Mild (1-3) Al Hydrox/Mg Hydrox/Simethicone (Maalox Plus 30 Ml) 30 ml PO DAILY PRN PRN Reason: Upset Stomach Last Admin: 08/15/18 03:08 Dose: 30 ml Cephalexin Monohydrate (Keflex) 500 mg PO Q8 [facility]; Protocol Last Admin: 08/16/18 07:22 Dose: 500 mg Clonazepam (Klonopin) 2 mg PO HS [facility]; Protocol Last Admin: 08/15/18 22:36 Dose: 2 mg Magnesium Hydroxide (Milk Of Magnesia) 30 ml PO DAILY PRN PRN Reason: Constipation Last Admin: 08/16/18 08:42 Dose: 30 ml Pantoprazole Sodium (Protonix Ec Tab) 40 mg PO [facility] Last Admin: 08/15/18 22:36 Dose: 40 mg Quetiapine Fumarate (Seroquel) 50 mg PO Q4H PRN; Protocol PRN Reason: Agitation Quetiapine Fumarate (Seroquel) 300 mg PO [facility]; Protocol Last Admin: 08/15/18 22:36 Dose: 300 mg Tamsulosin HCl (Flomax) 0.4 mg PO DAILY [facility] Last Admin: 08/16/18 08:42 Dose: 0.4 mg - Labs Labs: 08/13/18 08:00 08/13/18 08:00 - Constitutional Appears: Chronically Ill - Head Exam Head Exam: NORMAL INSPECTION - Neck Exam Neck Exam: absent: Meningismus - Respiratory Exam Respiratory Exam: Decreased Breath Sounds - Cardiovascular Exam Cardiovascular Exam: +S1, +S2 - GI/Abdominal Exam GI & Abdominal Exam: Soft. absent: Tenderness Assessment and Plan - Assessment and Plan (Free Text) Plan: assessment consider Erin krameris UTI in this patient with urinary retention no pneumonia noted on CT chest - shadow noted on CXR probable from the stomach pulled up after esophagectomy esophageal cancer S/P esophagectomy bipolar disorder Plan continue Keflex day 3 patient will be seen by Urology after his stay in the Psych unit as per Dr. Lamb will continue to monitor clinically
[2018-08-16] MEDS: Pantoprazole 40 mg EC Tab PO SCH (23:28)
--- NOTE | 2018-08-17 08:44 | PCM.PYCHPN ---
Psychiatric Progress Note - Psychiatric Progress Note Patient seen today, length of contact: 30min Problems Identified/Issues Discussed: I reviewed recent notes and met with patient in the day room. Grooming appears adequate and he is oriented x3 with fair focus. Patient reports his mood as " well and improving". Feels that the recent increase in his medications was beneficial. He denies any new side effects, discomfort or pain. Thought process is coherent and patient denies any paranoid thoughts (though appeared paranoid about his brother on Saturday). Delusions were not elicited. Patient has stayed mostly in his room and when he does come out into the unit, he keeps mostly to himself. He attended group therapy on Saturday. There were no major behavioral issues over the weekend. Diagnostic Results: Paranoid Schizophrenia vs. Paranoid Personality Disorder Medication Change: No ( ) Medical Record Reviewed: Yes Mental Status Examination - Cognitive Function Orientation: Person, Place, Situation, Time Memory: Intact Attention: WNL Concentration: WNL Association: WNL Fund of Knowledge: WNL - Mood Mood: Anxious, Other - Affect Affect: Other (labile) - Speech Speech: Appropriate, Pressured - Formal Thought Process Formal Thought Process: Paranoia, Other - Suicidal Ideation Suicidal Ideation: No - Homicidal Ideation Homicidal Ideation: No Goal/Treatment Plan - Goal/Treatment Plan Progress Toward Problem(s) and Goals/Treatment Plan: * c/w current tx and plan * Appreciate f/u by Dr. Lamb and Dr. Swenson on 08/16/18 * Vitals reviewed and noted below: Selected Entries 08/17/18 07:00 Temperature 97.7 F Pulse Rate 76 Respiratory 20 Rate Blood Pressure 109/75 * No new lab results noted over the weekend thus far
[2018-08-17 08:49] LABS: BASO # 0.01 K/mm3 (0.0-2.0); BASO % 0.2 % (0.0-3.0); EOS # 0.2 (0.0-0.7); EOS % 4.3 % (1.5-5.0); HEMOGLOBIN 15.2 g/dL (14.0-18.0); LYMPH # 1.7 (1.2-3.4); LYMPH % 32.6 % (22.0-35.0); MEAN CELL VOLUME 88.4 fl (80.0-105.0); MEAN CORPUSCULAR HEMOGLOBIN 29.4 pg (25.0-35.0); MEAN CORPUSCULAR HGB CONC 33.3 g/dl (31.0-37.0); MEAN PLATELET VOLUME 10.1 fl (7.0-11.0); MONO # 0.7 (0.1-0.6); MONO % 12.6 % (1.0-6.0); RBC 5.17 10^6/uL (3.5-6.1); RED CELL DISTRIBUTION WIDTH 13.3 % (11.5-14.5); WHITE BLOOD COUNT 5.3 10^3/uL (4.5-11.0)
[2018-08-17 09:09] LABS: ALB/GLOB RATIO 1.3 (1.1-1.8); ALBUMIN 4.5 g/dL (3.0-4.8); ALT/SGPT 22 U/L (7-56); AST/SGOT 30 U/L (17-59); BLOOD UREA NITROGEN 21 mg/dL (7-21); CALCIUM 10.1 mg/dL (8.4-10.5); GFR NON-AFRICAN AMERICAN > 60
--- NOTE | 2018-08-17 20:12 | PN ---
DATE: 08/17/2018 SUBJECTIVE: The patient is in bed, in no acute distress, and nontoxic. The patient was seen earlier in psychiatric floor. PHYSICAL EXAMINATION VITAL SIGNS: Temperature was 98, blood pressure 120/70, respiratory rate of 18. HEENT: Unremarkable. NECK: Supple. LUNGS: Decreased breath sounds. HEART: Normal S1 and S2. ABDOMEN: Soft. LABORATORY DATA: Reviewed. ASSESSMENT AND PLAN: This is a 67-year-old male with Staphylococcus lugdunensis urinary tract infection with urinary retention. The patient with esophageal cancer, bipolar. Currently on day #4 of Keflex. Blood cultures are reported to be negative. Shar Pratt MD
[2018-08-17] MEDS: Pantoprazole 40 mg EC Tab PO SCH (23:02)
--- NOTE | 2018-08-18 10:17 | PN ---
DATE: 08/18/2018 SUBJECTIVE: This is a 67-year-old male on the psychiatric unit, admitted by Dr. Beau Lopez for agitation with an underlying history of bipolar disorder. This morning the patient states that he is getting pain in both shoulders. He also shows me a left hand finger, which he claims to have traumatized in the past. Initially, he was offered the option of having an orthopedist assess him for these things and for his shoulders, but he declined and now he wishes to have an orthopedist take a look at him. He states that he was told by his primary physician at [facility] that it could be bilateral rotator cuff disorder in his shoulders. Nursing staff relates that there were no particular problems during the night or day yesterday. The patient's spirits seem to be a bit better. PHYSICAL EXAMINATION: VITAL SIGNS: Temperature 97.6, blood pressure 116/79, pulse 78, respiratory rate 19. GENERAL: He is alert and oriented x3. LUNGS: Clear. HEART: S1 and S2 rhythm. ABDOMEN: Soft. Positive bowel sounds. EXTREMITIES: No evidence of edema at this time. MEDICATIONS: The patient is on Flomax 0.4 mg per for urinary retention, Keflex 500 mg every 8 hours for urinary tract infection, Klonopin 2 mg at bedtime, Milk of Magnesia and Maalox p.r.n., Protonix 40 mg daily, Seroquel 50 mg every 4 hours p.r.n., Seroquel 300 mg p.r.n. a.m. and h.s. and Tylenol 2 tablets every 4 hours p.r.n. for mild pain. LABORATORY DATA: His labs from 08/17/2018, repeat potassium was okay at 4.1. ASSESSMENT AND PLAN: We will continue current level of care. Appreciate the opportunity to participate in this patient's care. He is being followed by Infectious Disease and Psychiatry and Urology. He has a remote history of esophageal cancer with surgery and chemo. Marielos Lamb MD
--- NOTE | 2018-08-18 10:32 | CP.PCM.PN ---
<Nicolas English - Last Filed: 08/18/18 14:02> Subjective - Date & Time of Evaluation Date of Evaluation: 08/18/18 Time of Evaluation: 07:25 - Subjective Subjective: Infectious disease progress note: Pt seen and examined at bedside. No acute events overnight. Denies any dysuria or frequency. No fevers. 12 Point ROS neg other than stated above Objective - Vital Signs/Intake and Output Vital Signs (last 24 hours): Temp Pulse Resp BP Pulse Ox 97.6 F 78 19 116/79 98 08/18/18 08:48 08/18/18 07:00 08/18/18 07:00 08/18/18 07:00 08/11/18 22:45 - Medications Medications: Current Medications Acetaminophen (Tylenol 325mg Tab) 650 mg PO Q4H PRN PRN Reason: Pain, Mild (1-3) Last Admin: 08/18/18 08:48 Dose: 650 mg Al Hydrox/Mg Hydrox/Simethicone (Maalox Plus 30 Ml) 30 ml PO DAILY PRN PRN Reason: Upset Stomach Last Admin: 08/15/18 03:08 Dose: 30 ml Cephalexin Monohydrate (Keflex) 500 mg PO Q8 [facility]; Protocol Last Admin: 08/18/18 05:34 Dose: 500 mg Clonazepam (Klonopin) 2 mg PO HS [facility]; Protocol Last Admin: 08/17/18 23:01 Dose: 2 mg Magnesium Hydroxide (Milk Of Magnesia) 30 ml PO DAILY PRN PRN Reason: Constipation Last Admin: 08/16/18 08:42 Dose: 30 ml Pantoprazole Sodium (Protonix Ec Tab) 40 mg PO HS [facility] Last Admin: 08/17/18 23:02 Dose: 40 mg Quetiapine Fumarate (Seroquel) 50 mg PO Q4H PRN; Protocol PRN Reason: Agitation Quetiapine Fumarate (Seroquel) 300 mg PO [facility]; Protocol Last Admin: 08/18/18 09:29 Dose: 300 mg Tamsulosin HCl (Flomax) 0.4 mg PO DAILY [facility] Last Admin: 08/18/18 08:44 Dose: 0.4 mg - Labs Labs: 08/17/18 08:30 08/17/18 09:50 - Constitutional Appears: No Acute Distress - Head Exam Head Exam: ATRAUMATIC, NORMOCEPHALIC - Eye Exam Eye Exam: EOMI - ENT Exam ENT Exam: Mucous Membranes Moist - Respiratory Exam Respiratory Exam: Clear to Ausculation Bilateral. absent: Wheezes - Cardiovascular Exam Cardiovascular Exam: RRR, +S1, +S2 - GI/Abdominal Exam GI & Abdominal Exam: Soft. absent: Tenderness - Extremities Exam Extremities Exam: absent: Calf Tenderness, Pedal Edema - Neurological Exam Neurological Exam: Alert, Awake, Oriented x3 - Psychiatric Exam Psychiatric exam: Normal Mood - Skin Skin Exam: Dry, Warm Assessment and Plan - Assessment and Plan (Free Text) Assessment: 59-year-old male with past medical history of bipolar and esophageal cancer s/p esophagectomy presents to the ED with increasing agitation. Patient was admitted to the psychiatric floor for further management. Infectious disease consulted for a possible pneumonia. However the shadow on the chest x-ray likely secondary to esophagectomy. Found to have a UTI with staph lucdunesis. Continue antibiotics with Keflex for staph lucdunesis , day 5 of 7 Monitor for any changes Case and plan was reviewed and discussed with Dr. Swenson <Jim Swenson - Last Filed: 08/18/18 14:41> Objective - Vital Signs/Intake and Output Vital Signs (last 24 hours): Temp Pulse Resp BP Pulse Ox 97.6 F 78 19 116/79 98 08/18/18 08:48 08/18/18 07:00 08/18/18 07:00 08/18/18 07:00 08/11/18 22:45 - Medications Medications: Current Medications Acetaminophen (Tylenol 325mg Tab) 650 mg PO Q4H PRN PRN Reason: Pain, Mild (1-3) Last Admin: 08/18/18 08:48 Dose: 650 mg Al Hydrox/Mg Hydrox/Simethicone (Maalox Plus 30 Ml) 30 ml PO DAILY PRN PRN Reason: Upset Stomach Last Admin: 08/15/18 03:08 Dose: 30 ml Cephalexin Monohydrate (Keflex) 500 mg PO Q8 [facility]; Protocol Last Admin: 08/18/18 05:34 Dose: 500 mg Clonazepam (Klonopin) 2 mg PO HS [facility]; Protocol Last Admin: 08/17/18 23:01 Dose: 2 mg Magnesium Hydroxide (Milk Of Magnesia) 30 ml PO DAILY PRN PRN Reason: Constipation Last Admin: 08/16/18 08:42 Dose: 30 ml Pantoprazole Sodium (Protonix Ec Tab) 40 mg PO HS [facility] Last Admin: 08/17/18 23:02 Dose: 40 mg Quetiapine Fumarate (Seroquel) 50 mg PO Q4H [facility]; Protocol PRN Reason: Agitation Quetiapine Fumarate (Seroquel) 300 mg PO [facility]; Protocol Last Admin: 08/18/18 09:29 Dose: 300 mg Tamsulosin HCl (Flomax) 0.4 mg PO DAILY [facility] Last Admin: 08/18/18 08:44 Dose: 0.4 mg - Labs Labs: 08/17/18 08:30 08/17/18 09:50 Assessment and Plan - Assessment and Plan (Free Text) Assessment: Infectious diseases Attending Physician Attestation Patient seen and examined, discussed with medical reception. I have reviewed the patient's history of present illness, past medical, social, personal and family histories, pertinent physical exam findings, course so far in this hospital admission, pertinent laboratory and imaging results. I agree with the above findings, assessment and plan. In addition, complete 7-10 day course of Keflex for patient with complicated UTI with Staph lugdunensis. Patient will follow up with Urology after his Psych unit stay according to Dr. Lamb.
--- NOTE | 2018-08-18 12:35 | PCM.PYCHPN ---
Psychiatric Progress Note - Psychiatric Progress Note Patient seen today, length of contact: 30min Patient Chief Complaint: Patient has been under my care for more than 20 years. His brother who often supervise him and help support him financially expressed concern as the patient had become more agitated and paranoid over the past 2-3 weeks. Several events had interceded the. The supervisor travel information center of the living residency where he resides in [facility] she expressed concern about his [place] bizarre behavior which consisted of pacing, agitation and some paranoia. The brother is subsequently found that he received a artificial flower maker as a letter from the [employer] although he is not sure of the content. Patient has told nursing here that he may have been accused of sexual harassment. 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 He has on occasion become very agitated simulating either a bipolar disorder or a chronic paranoid schizophrenic disorder although these latter 2 diagnoses may be too s evere and not capture the full thrust of the patient's behavioral repertoire. He was last hospitalized approximately 20-30 years ago (I will check my records) In the past he has been resentful the parenting by his parents, the perceived favoritism given to his brother who appears to be more functional (and is a social worker psychiatric at [facility] psychiatric unit). He has seen numerous mental health workers in psychotherapy and several psychiatrists. He has held a number of jobs. He has often wanted to have a significant relationship but his odd, eccentric, abrasive behavior has prevented this from happening. In the pace past several years he has been treated for esophageal cancer at [facility]. Problems Identified/Issues Discussed: Patient remains paranoid, angry, with pressured speech, much rationalization and denial He was interviewed and treatment team. He makes accusations and that his brother and the disposition are in cahoots to get money out of him. The He had some difficulties with the [employer] that necessitated that they send him a stone operator letter, the content of which is unknown (but for which his brother is trying to gain a copy of them ( The patient can be intimidating in his agitation. He does not appear to be overtly sexually preoccupied, at least to the extent that he does not focus on or talk about sexual issues unless specifically asked (a such as an old girlfriend pinching his genitals) Medical Problems: These appear to be not as problematic problematic as initially thought He is a cancer (esophageal) survivor. His pulmonary status is being monitored by Dr. Lamb as well as his urologic status. Diagnostic Results: Results of lung imaging do not presently show pneumonia DSM 5 Symptoms Update: Patient seems less agitated and less paranoid today although still paranoid and still isolative Has developed a new symptom complex which is upper torso pain. My sense is that the Seroquel 600 mg may be exerting a positive effect but needs time to further assist the patient and his recovery Medication Change: No ( ) Medical Record Reviewed: Yes Consults ordered or reviewed: Pulmonology, internal medicine consults reviewed Mental Status Examination - Cognitive Function Orientation: Person, Place, Situation, Time Memory: Intact Attention: WNL Concentration: WNL Association: WNL Fund of Knowledge: WNL - Mood Mood: Anxious, Other - Affect Affect: Other (labile) - Speech Speech: Appropriate - Formal Thought Process Formal Thought Process: Paranoia, Other - Suicidal Ideation Suicidal Ideation: No - Homicidal Ideation Homicidal Ideation: No Goal/Treatment Plan - Goal/Treatment Plan Progress Toward Problem(s) and Goals/Treatment Plan: Will adjust medication and get further details of recent potential precipitants to patient's present problematic behavior Patient remains agitated, with pressured speech, angry, accusatory. His Seroquel doses have been increased On August 14 have reviewed both nursing notes and notes from social work. Plans for discharge are premature at this juncture given the patient's levelofin . Stability. This may be the most sustained period of agitation I have experienced in my course of treatment with this patient On August 15 patient appears to be less agitated but upon questioning remains paranoid although less reactively so. 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 This has been the something that the patient has denied The patient seems to be improving. He is less condescending, less angry, less pressured in speech but still paranoid. He has also developed a new symptom complex consisting of upper torso pain.
[2018-08-18] MEDS: Alum-Mag Hydrox-Simethicone Susp (30 mL) PO PRN (16:30)
[2018-08-18] MEDS: Pantoprazole 40 mg EC Tab PO SCH (21:35)
--- NOTE | 2018-08-18 23:07 | CON ---
DATE: 08/18/2018 UROLOGY CONSULTATION REQUESTING PHYSICIAN: Dr. Lamb/Dr. Lopez. The patient under Dr. Lopez service because he was in the mental health section of the hospital for 5 day from Urology standpoint he was noted to have presence of pyuria and may be microhematuria. HISTORY OF PRESENT ILLNESS: As follows, this is a very pleasant gentleman he is under the care of Dr. Lopez primarily at this point date of is 1950. He is a 67-year-old gentleman. He has some noted medical issues. He is a bipolar patient. From Urology standpoint, he was found to have a abnormal urinalysis with definite pyuria, possible microhematuria, urology is consulted. See the plan listed below. PAST MEDICAL AND SURGICAL HISTORY: Listed on the chart and patient of Dr. Lopez and Dr. Lamb as well. REVIEW OF SYSTEMS: As listed above, otherwise noncontributory. MEDICATIONS: See chart. ALLERGIES: SEE CHART. PHYSICAL EXAMINATION: GENERAL: A well-nourished male. He is actually currently in the recreation room and in good sprit. He is actually talking to a social science research assistant here in this room. He is scheduled to some other testing. See the plan as listed below. He is somewhat limited not the proper state and I do not want to interrupt his relationship with the social science research assistant. This could be carried out in the future. DIAGNOSES: Pyuria, hematuria. PLAN: As follows, I think it is a worthwhile endeavor to do upper tract imaging, we will do an ultrasound of the kidneys and bladder. I think it is also worthwhile to do urine culture and urine cytology. The role for a cystoscopy is appropriate, the issue will be inpatient versus outpatient most likely we are going to suggest an outpatient workup. Further plans will follow. Chandrakant Toney MD
--- NOTE | 2018-08-19 07:34 | CON ---
DATE: 08/18/2018 ORTHOPEDIC CONSULTATION A 67-year-old male in [facility], bed [address] Lamb. HISTORY OF PRESENT ILLNESS: Patient is complaining of bilateral shoulder pain which he has for many years and has been worked in [facility], found to have bilateral cuff tears, and he has parascapular muscle discomfort and weakness. He is able to abduct to approximately 90 degrees. Rotation is intact, but he has weakness of the rotator cuff tissue because there is a partial tear possible complaint of rotator cuff, but he is not looking for surgery at this time so I am going to write for physical therapy to regain strength of his shoulders by strengthening the deltoid and parascapular muscles. This should make him more functional and there is no need for surgery at this time and he has followup in [facility]. FINAL DIAGNOSES: Bilateral rotator cuff tears and weakness of both shoulders. PLAN: To do conservative therapy with physical therapy to regain strength and this way he should be compensate for the rotator cuff tear when the muscles of the deltoid especially and parascapular muscles get stronger. Oscar Hampton DO MTDYazan
--- NOTE | 2018-08-19 11:57 | PCM.PYCHPN ---
Psychiatric Progress Note - Psychiatric Progress Note Patient seen today, length of contact: 30min Patient Chief Complaint: Patient has been under my care for more than 20 years. His brother who often supervise him and help support him financially expressed concern as the patient had become more agitated and paranoid over the past 2-3 weeks. Several events had interceded the. The ramp supervisor of the living residency where he resides in [facility] she expressed concern about his [place] bizarre behavior which consisted of pacing, agitation and some paranoia. The brother is subsequently found that he received a financial data analyst as a letter from the [employer] although he is not sure of the content. Patient has told nursing here that he may have been accused of sexual harassment. 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 He has on occasion become very agitated simulating either a bipolar disorder or a chronic paranoid schizophrenic disorder although these latter 2 diagnoses may be too s evere and not capture the full thrust of the patient's behavioral repertoire. He was last hospitalized approximately 20-30 years ago (I will check my records) In the past he has been resentful the parenting by his parents, the perceived favoritism given to his brother who appears to be more functional (and is a long term care social worker at [facility] psychiatric unit). He has seen numerous mental health workers in psychotherapy and several psychiatrists. He has held a number of jobs. He has often wanted to have a significant relationship but his odd, eccentric, abrasive behavior has prevented this from happening. In the pace past several years he has been treated for esophageal cancer at [facility]. Problems Identified/Issues Discussed: Patient remains paranoid, angry, with pressured speech, much rationalization and denial He was interviewed and treatment team. He makes accusations and that his brother and the disposition are in cahoots to get money out of him. The He had some difficulties with the [employer] that necessitated that they send him a surveillance systems analyst letter, the content of which is unknown (but for which his brother is trying to gain a copy of them ( The patient can be intimidating in his agitation. He does not appear to be overtly sexually preoccupied, at least to the extent that he does not focus on or talk about sexual issues unless specifically asked (a such as an old girlfriend pinching his genitals) Medical Problems: These appear to be not as problematic problematic as initially thought He is a cancer (esophageal) survivor. His pulmonary status is being monitored by Dr. Lamb as well as his urologic status. Diagnostic Results: Results of lung imaging do not presently show pneumonia DSM 5 Symptoms Update: Remains labile but less so. Spoke in great detail, indeed over expansively, about his difficulties with the [employer] [facility]. Insists that he was miss understood. Spends much time in the library and is worried about librarians welfare and well-being. Had bought a upon set up plant to decorate the library and possibly other gifts for individual librarians. Has poor boundary definition and he does not understand/appreciate the impact of his intrusiveness and general demeanor, which can be intimidating on others. Plus he is perseverative and can speak in a loud voice. This had led to police warnings of his harassing librarians and a cautionary note to avoid the library. The library seems to have taken to further however and filed an official complaint. Patient cannot fully define his present legal status nor can he guarantee that he will not go into the library upon discharge presently. Case reviewed with Dr. Lamb and about the patient's upper extremity pain which she is not complaining about at time of this present interview Medication Change: No ( ) Medical Record Reviewed: Yes Mental Status Examination - Cognitive Function Orientation: Person, Place, Situation, Time Memory: Intact Attention: WNL Concentration: WNL Association: WNL Fund of Knowledge: WN Decription of patient's judgement and insights: Patient lacks insight into the impact of his interactions with others and the import of the statements and behaviors that he exhibits on others - Mood Mood: Anxious, Other - Affect Affect: Other (labile) - Speech Speech: Appropriate - Formal Thought Process Formal Thought Process: Paranoia, Other - Suicidal Ideation Suicidal Ideation: No - Homicidal Ideation Homicidal Ideation: No Goal/Treatment Plan - Goal/Treatment Plan Progress Toward Problem(s) and Goals/Treatment Plan: Will adjust medication and get further details of recent potential precipitants to patient's present problematic behavior Patient remains agitated, with pressured speech, angry, accusatory. His Seroquel doses have been increased On August 14 have reviewed both nursing notes and notes from social work. Plans for discharge are premature at this juncture given the patient's levelofin . Stability. This may be the most sustained period of agitation I have experienced in my course of treatment with this patient On August 15 patient appears to be less agitated but upon questioning remains paranoid although less reactively so. 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 This has been the something that the patient has denied The patient seems to be improving. He is less condescending, less angry, less pressured in speech but still paranoid. He has also developed a new symptom complex consisting of upper torso pain. On August 19 it is appreciated that the patient while calming down somewhat, remains paranoid, condescending, lacking in insight, cannot guarantee for "safety", I. E., Due to his lack of understanding were denial of the impact of his behavior on librarians staff, he cannot say that he will not attend at the library he is minimizing of the anxiety caused by his possible legal involvement as a result of his perceived harassment [place] library staff.
--- NOTE | 2018-08-19 12:52 | PN ---
DATE: 08/19/2018 SUBJECTIVE: A 67-year-old male on the Psychiatry Unit being followed for bipolar disorder with exacerbation. Nursing staff relates that there were no particular problems during the night. PHYSICAL EXAMINATION: VITAL SIGNS: Temperature is 98, pulse is 87, blood pressure is 95/61, respiratory rate is 20. GENERAL: He states that he is feeling a bit better although he is noticing that he is having pain across his shoulders and that in an attempt to get out of bed rolling from one side to the other, he finds that he is having a little bit of difficulty. LUNGS: Clear. HEART: In S1, S2 rhythm. ABDOMEN: Soft with positive bowel sounds. EXTREMITIES: Show no evidence of edema. NEUROLOGIC: He is alert and oriented x3. LABORATORY DATA: Microbiological studies have shown that there is a urinary tract infection with Staphylococcus lugdunensis for which he is being followed by Infectious Disease and currently is on antibiotic therapy. Cytology, the urine was negative. ASSESSMENT AND PLAN: He has evidence of urinary retention, he has been placed on Flomax and Urology's recommendation was to complete the course of antibiotics and the patient should be pursued and followed up as an outpatient. He has been seen by Orthopedics and an evaluation is in process for his bilateral shoulder pain to rule out the possibility of rotator cuff tear. He currently is on Flomax, Keflex, Klonopin, Protonix, Seroquel, Tylenol, p.r.n. milk of magnesia and p.r.n. Maalox. We will continue to follow the patient clinically and await orthopedic evaluation. Marielos Lamb MD
--- NOTE | 2018-08-19 14:23 | CP.PCM.PN ---
<Nicolas English - Last Filed: 08/19/18 14:21> Subjective - Date & Time of Evaluation Date of Evaluation: 08/19/18 Time of Evaluation: 07:50 - Subjective Subjective: Infectious disease progress note: Patient seen and examined in the psychiatric floor. Patient denies any complaints. Denies any urinary symptoms. 12 point ROS performed and negative other than stated above. Objective - Vital Signs/Intake and Output Vital Signs (last 24 hours): Temp Pulse Resp BP Pulse Ox 98.1 F 87 20 95/61 L 98 08/19/18 07:13 08/19/18 07:13 08/19/18 07:13 08/19/18 07:13 08/11/18 22:45 - Medications Medications: Current Medications Acetaminophen (Tylenol 325mg Tab) 650 mg PO Q4H PRN PRN Reason: Pain, Mild (1-3) Last Admin: 08/18/18 08:48 Dose: 650 mg Al Hydrox/Mg Hydrox/Simethicone (Maalox Plus 30 Ml) 30 ml PO DAILY PRN PRN Reason: Upset Stomach Last Admin: 08/18/18 16:30 Dose: 30 ml Cephalexin Monohydrate (Keflex) 500 mg PO Q8 [facility]; Protocol Last Admin: 08/19/18 06:32 Dose: 500 mg Clonazepam (Klonopin) 2 mg PO HS [facility]; Protocol Last Admin: 08/18/18 21:35 Dose: 2 mg Magnesium Hydroxide (Milk Of Magnesia) 30 ml PO DAILY PRN PRN Reason: Constipation Last Admin: 08/16/18 08:42 Dose: 30 ml Pantoprazole Sodium (Protonix Ec Tab) 40 mg PO HS [facility] Last Admin: 08/18/18 21:35 Dose: 40 mg Quetiapine Fumarate (Seroquel) 50 mg PO Q4H PRN; Protocol PRN Reason: Agitation Quetiapine Fumarate (Seroquel) 300 mg PO AMHS [facility]; Protocol Last Admin: 08/19/18 09:19 Dose: 300 mg Tamsulosin HCl (Flomax) 0.4 mg PO DAILY [facility] Last Admin: 08/19/18 09:20 Dose: 0.4 mg - Labs Labs: 08/17/18 08:30 08/17/18 09:50 - Constitutional Appears: No Acute Distress - Head Exam Head Exam: ATRAUMATIC, NORMOCEPHALIC - Eye Exam Eye Exam: EOMI - ENT Exam ENT Exam: Mucous Membranes Moist - Respiratory Exam Respiratory Exam: Clear to Ausculation Bilateral. absent: Wheezes - Cardiovascular Exam Cardiovascular Exam: REGULAR RHYTHM, +S1, +S2 - GI/Abdominal Exam GI & Abdominal Exam: Soft. absent: Tenderness - Extremities Exam Extremities Exam: absent: Calf Tenderness, Pedal Edema - Neurological Exam Neurological Exam: Alert, Awake, Oriented x3 - Psychiatric Exam Psychiatric exam: Normal Mood - Skin Skin Exam: Dry, Warm Assessment and Plan - Assessment and Plan (Free Text) Assessment: 59-year-old male with past medical history of bipolar and esophageal cancer s/p esophagectomy presents to the ED with increasing agitation. Patient was admitted to the psychiatric floor for further management. Infectious disease consulted for a possible pneumonia. However the shadow on the chest x-ray likely secondary to esophagectomy. Found to have a UTI with staph lucdunesis. Continue antibiotics with Keflex day 6 of 7, Last day tomorrow Monitor for any changes Case and plan was reviewed and discussed with Dr. Swenson <Jim Swenson - Last Filed: 08/19/18 15:39> Objective - Vital Signs/Intake and Output Vital Signs (last 24 hours): Temp Pulse Resp BP Pulse Ox 98.1 F 87 20 95/61 L 98 08/19/18 07:13 08/19/18 07:13 08/19/18 07:13 08/19/18 07:13 08/11/18 22:45 - Medications Medications: Current Medications Acetaminophen (Tylenol 325mg Tab) 650 mg PO Q4H PRN PRN Reason: Pain, Mild (1-3) Last Admin: 08/18/18 08:48 Dose: 650 mg Al Hydrox/Mg Hydrox/Simethicone (Maalox Plus 30 Ml) 30 ml PO DAILY PRN PRN Reason: Upset Stomach Last Admin: 08/18/18 16:30 Dose: 30 ml Clonazepam (Klonopin) 2 mg PO HS [facility]; Protocol Last Admin: 08/18/18 21:35 Dose: 2 mg Magnesium Hydroxide (Milk Of Magnesia) 30 ml PO DAILY PRN PRN Reason: Constipation Last Admin: 08/16/18 08:42 Dose: 30 ml Pantoprazole Sodium (Protonix Ec Tab) 40 mg PO HS [facility] Last Admin: 08/18/18 21:35 Dose: 40 mg Quetiapine Fumarate (Seroquel) 50 mg PO Q4H PRN; Protocol PRN Reason: Agitation Quetiapine Fumarate (Seroquel) 300 mg PO [facility]; Protocol Last Admin: 08/19/18 09:19 Dose: 300 mg Tamsulosin HCl (Flomax) 0.4 mg PO DAILY [facility] Last Admin: 08/19/18 09:20 Dose: 0.4 mg - Labs Labs: 08/17/18 08:30 08/17/18 09:50 Assessment and Plan - Assessment and Plan (Free Text) Assessment: Infectious diseases Attending Physician Attestation Patient seen and examined, discussed with medical assistant cardiology. I have reviewed the patient's history of present illness, past medical, social, personal and family histories, pertinent physical exam findings, course so far in this hospital admission, pertinent laboratory and imaging results. I agree with the above fi ndings, assessment and plan. In addition, continue Keflex for 7-10 days for complicated UTI with Staph lugdunensis. Patient to follow up with Urology after the Psych unit stay.
[2018-08-19] MEDS: Pantoprazole 40 mg EC Tab PO SCH (21:27)
[2018-08-20] MEDS: Alum-Mag Hydrox-Simethicone Susp (30 mL) PO PRN ×2 (01:43→20:21)
[2018-08-20] MEDS ORDERED: Benzocaine/Menthol (Cepacol) Lozenge MT PRN (08:24)
--- NOTE | 2018-08-20 08:34 | CP.PCM.PN ---
<Nicolas English - Last Filed: 08/20/18 10:36> Subjective - Date & Time of Evaluation Date of Evaluation: 08/20/18 Time of Evaluation: 09:30 - Subjective Subjective: Infectious disease progress note: Patient seen and examined in the psychiatric floor. No urinary symptoms. Complaints of some b/l upper ext muscle pain. No other complaints. 12 point ROS performed and negative other than stated above. Objective - Vital Signs/Intake and Output Vital Signs (last 24 hours): Temp Pulse Resp BP Pulse Ox 98.4 F 82 20 98/62 L 98 08/20/18 07:14 08/20/18 07:14 08/20/18 07:14 08/20/18 07:14 08/11/18 22:45 - Medications Medications: Current Medications Acetaminophen (Tylenol 325mg Tab) 650 mg PO Q4H PRN PRN Reason: Pain, Mild (1-3) Last Admin: 08/20/18 02:43 Dose: 650 mg Al Hydrox/Mg Hydrox/Simethicone (Maalox Plus 30 Ml) 30 ml PO DAILY PRN PRN Reason: Upset Stomach Last Admin: 08/20/18 01:43 Dose: 30 ml Benzocaine/Menthol (Cepacol Sore Throat) 1 marty MT Q2H PRN PRN Reason: Sore Throat Clonazepam (Klonopin) 2 mg PO HS [facility]; Protocol Last Admin: 08/19/18 21:27 Dose: 2 mg Magnesium Hydroxide (Milk Of Magnesia) 30 ml PO DAILY PRN PRN Reason: Constipation Last Admin: 08/16/18 08:42 Dose: 30 ml Pantoprazole Sodium (Protonix Ec Tab) 40 mg PO HS [facility] Last Admin: 08/19/18 21:27 Dose: 40 mg Quetiapine Fumarate (Seroquel) 50 mg PO Q4H PRN; Protocol PRN Reason: Agitation Quetiapine Fumarate (Seroquel) 300 mg PO AMHS [facility]; Protocol Last Admin: 08/19/18 21:27 Dose: 300 mg Tamsulosin HCl (Flomax) 0.4 mg PO DAILY [facility] Last Admin: 08/19/18 09:20 Dose: 0.4 mg - Labs Labs: 08/17/18 08:30 08/17/18 09:50 - Constitutional Appears: No Acute Distress - Head Exam Head Exam: ATRAUMATIC, NORMOCEPHALIC - Eye Exam Eye Exam: EOMI - ENT Exam ENT Exam: Mucous Membranes Moist - Respiratory Exam Respiratory Exam: Clear to Ausculation Bilateral (no r/r/w) - Cardiovascular Exam Cardiovascular Exam: REGULAR RHYTHM, +S1, +S2 - GI/Abdominal Exam GI & Abdominal Exam: Soft (NTND) - Neurological Exam Neurological Exam: Alert, Awake, Oriented x3 - Psychiatric Exam Psychiatric exam: Normal Mood - Skin Skin Exam: Dry, Warm Assessment and Plan - Assessment and Plan (Free Text) Assessment: 59-year-old male with past medical history of bipolar and esophageal cancer s/p esophagectomy presents to the ED with increasing agitation. Patient was admitted to the psychiatric floor for further management. Infectious disease consulted for a possible pneumonia. However the shadow on the chest x-ray likely secondary to esophagectomy. Found to have a UTI with staph lucdunesis. Continue Keflex day for today day 7 of 7-10 day course Follow with urology as outpt Monitor for any changes Case and plan was reviewed and discussed with Dr. Swenson <Jim Swenson - Last Filed: 08/20/18 14:59> Objective - Vital Signs/Intake and Output Vital Signs (last 24 hours): Temp Pulse Resp BP Pulse Ox 98.4 F 82 20 98/62 L 98 08/20/18 07:14 08/20/18 07:14 08/20/18 07:14 08/20/18 07:14 08/11/18 22:45 - Medications Medications: Current Medications Acetaminophen (Tylenol 325mg Tab) 650 mg PO Q4H PRN PRN Reason: Pain, Mild (1-3) Last Admin: 08/20/18 02:43 Dose: 650 mg Al Hydrox/Mg Hydrox/Simethicone (Maalox Plus 30 Ml) 30 ml PO DAILY PRN PRN Reason: Upset Stomach Last Admin: 08/20/18 01:43 Dose: 30 ml Benzocaine/Menthol (Cepacol Sore Throat) 1 marty MT Q2H PRN PRN Reason: Sore Throat Last Admin: 08/20/18 09:42 Dose: 1 marty Cephalexin Monohydrate (Keflex) 500 mg PO Q8 [facility]; Protocol Last Admin: 08/20/18 13:48 Dose: 500 mg Clonazepam (Klonopin) 2 mg PO HS [facility]; Protocol Last Admin: 08/19/18 21:27 Dose: 2 mg Magnesium Hydroxide (Milk Of Magnesia) 30 ml PO DAILY PRN PRN Reason: Constipation Last Admin: 08/16/18 08:42 Dose: 30 ml Pantoprazole Sodium (Protonix Ec Tab) 40 mg PO HS [facility] Last Admin: 08/19/18 21:27 Dose: 40 mg Quetiapine Fumarate (Seroquel) 50 mg PO Q4H PRN; Protocol PRN Reason: Agitation Quetiapine Fumarate (Seroquel) 300 mg PO AMHS [facility]; Protocol Last Admin: 08/20/18 10:07 Dose: 300 mg Tamsulosin HCl (Flomax) 0.4 mg PO DAILY [facility] Last Admin: 08/20/18 09:42 Dose: 0.4 mg - Labs Labs: 08/17/18 08:30 08/17/18 09:50 Assessment and Plan - Assessment and Plan (Free Text) Assessment: Infectious diseases Attending Physician Attestation Patient seen and examined, discussed with medical staff director. I have reviewed the patient's history of present illness, past medical, social, personal and family histories, pertinent physical exam findings, course so far in this hospital admission, pertinent laboratory and imaging results. I agree with the above findings, assessment and plan. In addition, continue Keflex for Staph lugdunen sis complicated UTI. To follow up with Urology. Complete 7-10 days. Check rapid flu test since his previous roommate had influenza. Discussed with Dr. Lamb.
--- NOTE | 2018-08-20 10:31 | PN ---
DATE: 08/20/2018 SUBJECTIVE: A 67-year-old male in the Psychiatry Unit. Patient of Dr. Beau Lopez, being followed for bipolar disorder. The patient is also being treated for urinary tract infection with urinary retention. PHYSICAL EXAMINATION: GENERAL: The patient offers no specific complaints this morning. He is feeling a bit better he states although he still complains of the discomfort in the shoulders. VITAL SIGNS: This morning show a temp of 98.4, blood pressure 98/62, respiratory rate is 20, oxygen saturation on room air is 98%, his pulse is 82. LUNGS: Clear. HEART: S1, S2 rhythm. ABDOMEN: Soft with positive bowel sounds. EXTREMITIES: No evidence of edema. MEDICATIONS: He is currently receiving Flomax, Klonopin, milk of magnesia, Maalox, Protonix, Seroquel, Tylenol. ASSESSMENT AND PLAN: He was receiving Keflex p.o. for his urinary tract infection with the recommendation by Infectious Disease to complete 7 to 10 days. Urology has recommended that the patient should be followed up for his urinary retention. He is being seen by Orthopedics for rotator cuff disorder and recommendation for physical therapy. This morning the nurses state that his roommate was reported to have the flu, the patient has consented doing a nasal swab for flu, and we will await those results, will also review with Infectious Disease. Marielos Lamb MD
--- NOTE | 2018-08-20 18:54 | PCM.PYCHPN ---
Psychiatric Progress Note - Psychiatric Progress Note Patient seen today, length of contact: 30min Patient Chief Complaint: Patient has been under my care for more than 20 years. His brother who often supervise him and help support him financially expressed concern as the patient had become more agitated and paranoid over the past 2-3 weeks. Several events had interceded the. The dental laboratory supervisor of the living residency where he resides in [facility] she expressed concern about his [place] bizarre behavior which consisted of pacing, agitation and some paranoia. The brother is subsequently found that he received a classified advertising manager as a letter from the [employer] although he is not sure of the content. Patient has told nursing here that he may have been accused of sexual harassment. 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 He has on occasion become very agitated simulating either a bipolar disorder or a chronic paranoid schizophrenic disorder although these latter 2 diagnoses may be too s evere and not capture the full thrust of the patient's behavioral repertoire. He was last hospitalized approximately 20-30 years ago (I will check my records) In the past he has been resentful the parenting by his parents, the perceived favoritism given to his brother who appears to be more functional (and is a long term care social worker at [facility] psychiatric unit). He has seen numerous mental health workers in psychotherapy and several psychiatrists. He has held a number of jobs. He has often wanted to have a significant relationship but his odd, eccentric, abrasive behavior has prevented this from happening. In the pace past several years he has been treated for esophageal cancer at [facility]. Problems Identified/Issues Discussed: Patient remains paranoid, angry, with pressured speech, much rationalization and denial He was interviewed and treatment team. He makes accusations and that his brother and the disposition are in cahoots to get money out of him. The He had some difficulties with the [employer] that necessitated that they send him a addiction specialist letter, the content of which is unknown (but for which his brother is trying to gain a copy of them ( The patient can be intimidating in his agitation. He does not appear to be overtly sexually preoccupied, at least to the extent that he does not focus on or talk about sexual issues unless specifically asked (a such as an old girlfriend pinching his genitals) Medical Problems: These appear to be not as problematic problematic as initially thought He is a cancer (esophageal) survivor. His pulmonary status is being monitored by Dr. Lamb as well as his urologic status. Diagnostic Results: Results of lung imaging do not presently show pneumonia DSM 5 Symptoms Update: Patient has periods of calmness and periods of volatility. Still accusatory, accusing me and his brother of financial irregularity and having him hospitalized. Has little insight into the nature of his behavior and its impact on others. Still suspicious of the motives of others. Is however less intimidating as he is not as allowed as before. His insight and judgment remain impaired. I have discussed the patient's case with nursing and with Dr. Lamb and have reviewed his chart. Medication Change: No ( ) Medical Record Reviewed: Yes Mental Status Examination - Cognitive Function Orientation: Person, Place, Situation, Time Memory: Intact Attention: WNL Concentration: WNL Association: WNL Fund of Knowledge: [facility] Decription of patient's judgement and insights: Patient lacks insight into the impact of his interactions with others and the import of the statements and behaviors that he exhibits on others - Mood Mood: Anxious, Other - Affect Affect: Other (labile) - Speech Speech: Appropriate - Formal Thought Process Formal Thought Process: Paranoia, Other - Suicidal Ideation Suicidal Ideation: No - Homicidal Ideation Homicidal Ideation: No Goal/Treatment Plan - Goal/Treatment Plan Progress Toward Problem(s) and Goals/Treatment Plan: Will adjust medication and get further details of recent potential precipitants to patient's present problematic behavior Patient remains agitated, with pressured speech, angry, accusatory. His Seroquel doses have been increased On August 14 have reviewed both nursing notes and notes from social work. Plans for discharge are premature at this juncture given the patient's levelofin . Stability. This may be the most sustained period of agitation I have experienced in my course of treatment with this patient On August 15 patient appears to be less agitated but upon questioning remains paranoid although less reactively so. 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 This has been the something that the patient has denied The patient seems to be improving. He is less condescending, less angry, less pressured in speech but still paranoid. He has also developed a new symptom complex consisting of upper torso pain. On August 19 it is appreciated that the patient while calming down somewhat, remains paranoid, condescending, lacking in insight, cannot guarantee for "safety", I. E., Due to his lack of understanding were denial of the impact of his behavior on librarians staff, he cannot say that he will not attend at the library he is minimizing of the anxiety caused by his possible legal involvement as a result of his perceived harassment [place] library staff.
[2018-08-20] MEDS: Pantoprazole 40 mg EC Tab PO SCH (21:26)
--- NOTE | 2018-08-21 09:34 | CP.PCM.PN ---
<Nicolas English - Last Filed: 08/21/18 12:25> Subjective - Date & Time of Evaluation Date of Evaluation: 08/21/18 Time of Evaluation: 07:15 - Subjective Subjective: Infectious disease progress note: Patient seen and examined in the psychiatric floor. Still c/o b/l upper ext muscle pain, Hx of rotator cuff tear. Denies any cough, fever,or chills. No other complaints. 12 point ROS performed and negative other than stated above. Objective - Vital Signs/Intake and Output Vital Signs (last 24 hours): Temp Pulse Resp BP Pulse Ox 99.3 F 72 20 96/61 L 98 08/21/18 06:59 08/21/18 06:59 08/21/18 06:59 08/21/18 06:59 08/11/18 22:45 - Medications Medications: Current Medications Acetaminophen (Tylenol 325mg Tab) 650 mg PO Q4H PRN PRN Reason: Pain, Mild (1-3) Last Admin: 08/20/18 02:43 Dose: 650 mg Al Hydrox/Mg Hydrox/Simethicone (Maalox Plus 30 Ml) 30 ml PO DAILY PRN PRN Reason: Upset Stomach Last Admin: 08/20/18 20:21 Dose: 30 ml Benzocaine/Menthol (Cepacol Sore Throat) 1 marty MT Q2H PRN PRN Reason: Sore Throat Last Admin: 08/20/18 09:42 Dose: 1 marty Cephalexin Monohydrate (Keflex) 500 mg PO Q8 MITCHELL; Protocol Last Admin: 08/21/18 05:40 Dose: 500 mg Clonazepam (Klonopin) 2 mg PO HS MITCHELL; Protocol Last Admin: 08/20/18 21:25 Dose: 2 mg Magnesium Hydroxide (Milk Of Magnesia) 30 ml PO DAILY PRN PRN Reason: Constipation Last Admin: 08/16/18 08:42 Dose: 30 ml Pantoprazole Sodium (Protonix Ec Tab) 40 mg PO HS MITCHELL Last Admin: 08/20/18 21:26 Dose: 40 mg Quetiapine Fumarate (Seroquel) 50 mg PO Q4H PRN; Protocol PRN Reason: Agitation Quetiapine Fumarate (Seroquel) 300 mg PO AMHS MITCHELL; Protocol Last Admin: 08/20/18 21:26 Dose: 300 mg Tamsulosin HCl (Flomax) 0.4 mg PO DAILY MITCHELL Last Admin: 08/20/18 09:42 Dose: 0.4 mg - Labs Labs: 08/17/18 08:30 08/17/18 09:50 - Constitutional Appears: No Acute Distress - Head Exam Head Exam: ATRAUMATIC, NORMOCEPHALIC - Eye Exam Eye Exam: EOMI - ENT Exam ENT Exam: Mucous Membranes Moist - Respiratory Exam Respiratory Exam: Clear to Ausculation Bilateral. absent: Rales, Rhonchi, Wheezes - Cardiovascular Exam Cardiovascular Exam: REGULAR RHYTHM, RRR, +S1, +S2 - GI/Abdominal Exam GI & Abdominal Exam: Soft. absent: Tenderness - Extremities Exam Extremities Exam: absent: Calf Tenderness, Pedal Edema - Neurological Exam Neurological Exam: Alert, Awake, Oriented x3 - Skin Skin Exam: Dry, Normal Color, Warm Assessment and Plan - Assessment and Plan (Free Text) Assessment: 59-year-old male with past medical history of bipolar and esophageal cancer s/p esophagectomy presents to the ED with increasing agitation. Patient was admitted to the psychiatric floor for further management. Infectious disease consulted for a possible pneumonia. However the shadow on the chest x-ray likely secondary to esophagectomy. Found to have a UTI with staph lucdunesis. Continue Keflex day to complete 7-10 day course - UTI with staph lucdunesis. b/l upper etx pain: f/u ESR, CRP, EROS, and RF, Influenza and cpk were neg Follow with urology as outpt Monitor for any changes Case and plan was reviewed and discussed with Dr. Swenson <Jim Swenson - Last Filed: 08/21/18 18:08> Objective - Vital Signs/Intake and Output Vital Signs (last 24 hours): Temp Pulse Resp BP Pulse Ox 99.3 F 78 20 106/70 98 08/21/18 06:59 08/21/18 16:00 08/21/18 06:59 08/21/18 16:00 08/11/18 22:45 - Medications Medications: Current Medications Acetaminophen (Tylenol 325mg Tab) 650 mg PO Q4H PRN PRN Reason: Pain, Mild (1-3) Last Admin: 08/20/18 02:43 Dose: 650 mg Al Hydrox/Mg Hydrox/Simethicone (Maalox Plus 30 Ml) 30 ml PO DAILY PRN PRN Reason: Upset Stomach Last Admin: 08/21/18 11:06 Dose: 30 ml Benzocaine/Menthol (Cepacol Sore Throat) 1 marty MT Q2H PRN PRN Reason: Sore Throat Last Admin: 08/20/18 09:42 Dose: 1 marty Cephalexin Monohydrate (Keflex) 500 mg PO Q8 MITCHELL; Protocol Last Admin: 08/21/18 13:27 Dose: 500 mg Clonazepam (Klonopin) 2 mg PO HS MITCHELL; Protocol Last Admin: 08/20/18 21:25 Dose: 2 mg Magnesium Hydroxide (Milk Of Magnesia) 30 ml PO DAILY PRN PRN Reason: Constipation Last Admin: 08/16/18 08:42 Dose: 30 ml Pantoprazole Sodium (Protonix Ec Tab) 40 mg PO HS MITCHELL Last Admin: 08/20/18 21:26 Dose: 40 mg Quetiapine Fumarate (Seroquel) 50 mg PO Q4H PRN; Protocol PRN Reason: Agitation Quetiapine Fumarate (Seroquel) 300 mg PO AMHS MITCHELL; Protocol Last Admin: 08/21/18 09:57 Dose: 300 mg Tamsulosin HCl (Flomax) 0.4 mg PO DAILY MITCHELL Last Admin: 08/21/18 09:57 Dose: 0.4 mg - Labs Labs: 08/17/18 08:30 08/17/18 09:50 Assessment and Plan - Assessment and Plan (Free Text) Assessment: Infectious diseases Attending Physician Attestation Patient seen and examined, discussed with medical translator. I have reviewed the patient's history of present illness, past medical, social, personal and family histories, pertinent physical exam findings, course so far in this hospital admission, pertinent laboratory and imaging results. I agree with the above findings, assessment and plan. In addition, continue Keflex for Staph lugdunensis complicated UTI, with follow up with Urology after PSychu unit stay. Check ESR, CRP, EROS, RF since patient has chronic shoulder pain.
[2018-08-21] MEDS: Alum-Mag Hydrox-Simethicone Susp (30 mL) PO PRN (11:06)
--- NOTE | 2018-08-21 12:28 | PCM.PYCHPN ---
Psychiatric Progress Note - Psychiatric Progress Note Patient seen today, length of contact: 30min Patient Chief Complaint: Patient has been under my care for more than 20 years. His brother who often supervise him and help support him financially expressed concern as the patient had become more agitated and paranoid over the past 2-3 weeks. Several events had interceded the. The magnetic prospecting supervisor of the living residency where he resides in [facility] she expressed concern about his [place] bizarre behavior which consisted of pacing, agitation and some paranoia. The brother is subsequently found that he received a electroless plater as a letter from the [employer] although he is not sure of the content. Patient has told nursing here that he may have been accused of sexual harassment. 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 He has on occasion become very agitated simulating either a bipolar disorder or a chronic paranoid schizophrenic disorder although these latter 2 diagnoses may be too s evere and not capture the full thrust of the patient's behavioral repertoire. He was last hospitalized approximately 20-30 years ago (I will check my records) In the past he has been resentful the parenting by his parents, the perceived favoritism given to his brother who appears to be more functional (and is a hospital social worker at [facility] psychiatric unit). He has seen numerous mental health workers in psychotherapy and several psychiatrists. He has held a number of jobs. He has often wanted to have a significant relationship but his odd, eccentric, abrasive behavior has prevented this from happening. In the pace past several years he has been treated for esophageal cancer at [facility]. Problems Identified/Issues Discussed: Patient remains paranoid, angry, with pressured speech, much rationalization and denial He was interviewed and treatment team. He makes accusations and that his brother and the disposition are in cahoots to get money out of him. The He had some difficulties with the [employer] that necessitated that they send him a production estimator letter, the content of which is unknown (but for which his brother is trying to gain a copy of them ( The patient can be intimidating in his agitation. He does not appear to be overtly sexually preoccupied, at least to the extent that he does not focus on or talk about sexual issues unless specifically asked (a such as an old girlfriend pinching his genitals) Medical Problems: These appear to be not as problematic problematic as initially thought He is a cancer (esophageal) survivor. His pulmonary status is being monitored by Dr. Lamb as well as his urologic status. Diagnostic Results: Results of lung imaging do not presently show pneumonia DSM 5 Symptoms Update: Patient interviewed and treatment team meeting. Remains on her expansive, tangential, circumstantial and paranoid. Cannot take responsibility for any of his actions nor does she understand the impact of his behavior on others. Is avoidant of having brother come in for a family meeting but seems to be going along with this. The patient is at risk for further disturbing behavior to other members of society should he be discharged at this juncture. Complains of some sedation and is already on high dose of Seroquel which has calmed him down but remains paranoid. Medication Change: No ( ) Medical Record Reviewed: Yes Mental Status Examination - Cognitive Function Orientation: Person, Place, Situation, Time Memory: Intact Attention: WNL Concentration: WNL Association: WNL Fund of Knowledge: [facility] Decription of patient's judgement and insights: Patient lacks insight into the impact of his interactions with others and the import of the statements and behaviors that he exhibits on others - Mood Mood: Anxious, Other - Affect Affect: Other (labile) - Speech Speech: Appropriate - Formal Thought Process Formal Thought Process: Paranoia, Other - Suicidal Ideation Suicidal Ideation: No - Homicidal Ideation Homicidal Ideation: No Goal/Treatment Plan - Goal/Treatment Plan Progress Toward Problem(s) and Goals/Treatment Plan: Will adjust medication and get further details of recent potential precipitants to patient's present problematic behavior Patient remains agitated, with pressured speech, angry, accusatory. His Seroquel doses have been increased On August 14 have reviewed both nursing notes and notes from social work. Plans for discharge are premature at this juncture given the patient's levelofin . Stability. This may be the most sustained period of agitation I have experienced in my course of treatment with this patient On August 15 patient appears to be less agitated but upon questioning remains paranoid although less reactively so. 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 This has been the something that the patient has denied The patient seems to be improving. He is less condescending, less angry, less pressured in speech but still paranoid. He has also developed a new symptom complex consisting of upper torso pain. On August 19 it is appreciated that the patient while calming down somewhat, remains paranoid, condescending, lacking in insight, cannot guarantee for "safety", I. E., Due to his lack of understanding were denial of the impact of his behavior on librarians staff, he cannot say that he will not attend at the library he is minimizing of the anxiety caused by his possible legal involvement as a result of his perceived harassment [place] library staff.
--- NOTE | 2018-08-21 14:52 | PN ---
DATE: 08/21/2018 SUBJECTIVE: A 67-year-old male on the psychiatric unit, admitted by Dr. Beau Lopez, a psychiatrist. The patient is being followed for a bipolar disorder. PHYSICAL EXAMINATION: VITAL SIGNS: He has a temperature of 99.3, blood pressure is 96/61, respiratory rate is 20, pulse is 72. GENERAL: He is alert and oriented x3. NECK: Supple. There is no JVD. EXTREMITIES: Legs show no evidence of edema. ASSESSMENT AND PLAN: 1. At the present time, the patient is on Flomax, Klonopin, Maalox, milk of magnesia, Protonix, Seroquel and Tylenol. He is also on Keflex day 8 of day 10 for urinary tract infection. 2. He is on Flomax because of urinary retention as ordered by the urologist and he is aware of the fact that there will be a need upon completion of the antibiotic therapy to be followed up by urologist. 3. He has a history in the past of esophageal cancer treated with surgery and chemo at [facility]. 4. He has a history of bilateral rotator cuff disorder, been seen by Orthopedics and has received occupational and physical therapy. 5. He will continue current level of care at this time. Sputum culture is pending. His serology for influenza A, B is negative. All clinical studies and findings to this point have been discussed with the patient as well as with his attending and he expresses an understanding. Marielos Lamb MD
--- NOTE | 2018-08-21 15:07 | PCM.BM ---
Treatment Plan Problems - Problems identified on initial assessmt AGITATION/AGGRESSIVE BEHAVIOR Date Initiated: 08/11/18 Time Initiated: 23:00 Assessment reference: NA Status: Active Priority: 1 INEFFECTIVE IMPULSE CONROL Date Initiated: 08/11/18 Time Initiated: 23:00 Assessment reference: NA Status: Active Priority: 2 HIGH RISK OF VIOLENCE Date Initiated: 08/11/18 Time Initiated: 23:00 Assessment reference: NA Status: Active Priority: 3 INEFFECIVE MEDICATION REGIMEN Date Initiated: 08/11/18 Time Initiated: 23:00 Assessment reference: NA Status: Active Priority: 4 Treatment assets and liabiliti Patient Assests: adapts well, cooperative, educated, self-reliant, ADL independent, physically healthy, negotiates basic needs, financial stabiity, cognitively intact Patient Liabilities: live alone, poor support system, relationship conflicts - Milieu Protocol Maintain good personal hygiene: every other day Encourage regular showers, every shift Remind patient to perform daily oral care, every shift Assist patient to perform ADL's Maintain personal safety: every shift Educate patient to report safety concerns to staff, every shift Monitor environment for contraband/sharps Medication safety: Monitor for expected outcome, potential side effects: every shift Milieu Narrative: Will adjust medication and get further details of recent potential precipitants to patient's present problematic behavior Patient remains agitated, with pressured speech, angry, accusatory. His Seroquel doses have been increased On August 14 have reviewed both nursing notes and notes from social work. Plans for discharge are premature at this juncture given the patient's levelofin . Stability. This may be the most sustained period of agitation I have experienced in my course of treatment with this patient On August 15 patient appears to be less agitated but upon questioning remains paranoid although less reactively so. 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 This has been the something that the patient has denied The patient seems to be improving. He is less condescending, less angry, less pressured in speech but still paranoid. He has also developed a new symptom complex consisting of upper torso pain. On August 19 it is appreciated that the patient while calming down somewhat, remains paranoid, condescending, lacking in insight, cannot guarantee for "safety", I. E., Due to his lack of understanding were denial of the impact of his behavior on librarians staff, he cannot say that he will not attend at the library he is minimizing of the anxiety caused by his possible legal involvement as a result of his perceived harassment [employer] library staff. Family Contact Family involvement: Family/SO is involved Family contact name: Bridger Cosby, brother Family contacted how many times per week?: 2 Discharge/Continuing Care - Treatment Team Participation Patient/Family/SO Statement: Will adjust medication and get further details of recent potential precipitants to patient's present problematic behavior Patient remains agitated, with pressured speech, angry, accusatory. His Se roquel doses have been increased On August 14 have reviewed both nursing notes and notes from social work. Plans for discharge are premature at this juncture given the patient's levelofin . Stability. This may be the most sustained period of agitation I have experienced in my course of treatment with this patient On August 15 patient appears to be less agitated but upon questioning remains paranoid although less reactively so. 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 This has been the something that the patient has denied The patient seems to be improving. He is less condescending, less angry, less pressured in speech but still paranoid. He has also developed a new symptom complex consisting of upper torso pain. On August 19 it is appreciated that the patient while calming down somewhat, remains paranoid, condescending, lacking in insight, cannot guarantee for "safety", I. E., Due to his lack of understanding were denial of the impact of his behavior on librarians staff, he cannot say that he will not attend at the library he is minimizing of the anxiety caused by his possible legal involvement as a result of his perceived harassment [employer] staff. Treatment Plan Review - Problem AGITATION/AGGRESSIVE BEHAVIOR Time Initiated: 23:00 INEFFECTIVE IMPULSE CONROL Time Initiated: 23:00 HIGH RISK OF VIOLENCE Time Initiated: 23:00 INEFFECIVE MEDICATION REGIMEN Time Initiated: 23:00
[2018-08-21] MEDS: Pantoprazole 40 mg EC Tab PO SCH (21:26)
--- NOTE | 2018-08-22 10:02 | PN ---
DATE: 08/22/2018 SUBJECTIVE: A 67-year-old male on the Psychiatry Unit with a history of bipolar disorder, was admitted by Dr. Beau Lopez. He currently is having breakfast, seems to be in a good mood, offers no specific complaints at this time, feeling a bit better with current medical management. PHYSICAL EXAMINATION: GENERAL: He is alert and oriented x3. VITAL SIGNS: His temperature is 98.4, his blood pressure is 100/61, his respiratory rate is 20 and his pulse is 80. LUNGS: Clear. HEART: S1, S2 rhythm. ABDOMEN: Soft with positive bowel sounds. EXTREMITIES: Show no evidence of edema. LABORATORY DATA: A rheumatoid arthritic interpretation was negative. An EROS 6 profile was pending. MEDICATIONS: He currently is on Flomax for urinary retention, Keflex for urinary tract infection. He is on Klonopin and Seroquel for his bipolar disorder, Tylenol p.r.n. for mild pain. He is on milk of magnesia and Maalox p.r.n. for constipation and GERD, and he is on Protonix also for his GERD. ASSESSMENT AND PLAN: His past medical history is rotator cuff disease of both shoulders, esophageal surgery with chemotherapy at [facility] in 2009 for esophageal cancer, would continue current level of care at this time. He has a C-reactive protein of 13.2, being followed by Infectious Disease and Psychiatry, and he has been seen by Urology and Orthopedics as well. He will receive physical therapy for his shoulders as was ordered by Orthopedics. Marielos Lamb MD
--- NOTE | 2018-08-22 13:15 | CP.PCM.PN ---
<Nicolas English - Last Filed: 08/22/18 13:16> Subjective - Date & Time of Evaluation Date of Evaluation: 08/22/18 Time of Evaluation: 10:00 - Subjective Subjective: Infectious disease progress note: Patient seen and examined in the psychiatric floor. Denies any cough, fever,or chills. No complaints. 12 point ROS performed and negative other than stated above. Objective - Vital Signs/Intake and Output Vital Signs (last 24 hours): Temp Pulse Resp BP Pulse Ox 98.4 F 80 20 100/61 98 08/22/18 07:09 08/22/18 07:09 08/22/18 07:09 08/22/18 07:09 08/11/18 22:45 - Medications Medications: Current Medications Acetaminophen (Tylenol 325mg Tab) 650 mg PO Q4H PRN PRN Reason: Pain, Mild (1-3) Last Admin: 08/20/18 02:43 Dose: 650 mg Al Hydrox/Mg Hydrox/Simethicone (Maalox Plus 30 Ml) 30 ml PO DAILY PRN PRN Reason: Upset Stomach Last Admin: 08/21/18 11:06 Dose: 30 ml Benzocaine/Menthol (Cepacol Sore Throat) 1 marty MT Q2H PRN PRN Reason: Sore Throat Last Admin: 08/20/18 09:42 Dose: 1 marty Cephalexin Monohydrate (Keflex) 500 mg PO Q8 MITCHELL; Protocol Last Admin: 08/22/18 06:11 Dose: 500 mg Clonazepam (Klonopin) 2 mg PO HS MICTHELL; Protocol Last Admin: 08/21/18 21:26 Dose: 2 mg Magnesium Hydroxide (Milk Of Magnesia) 30 ml PO DAILY PRN PRN Reason: Constipation Last Admin: 08/16/18 08:42 Dose: 30 ml Pantoprazole Sodium (Protonix Ec Tab) 40 mg PO HS MITCHELL Last Admin: 08/21/18 21:26 Dose: 40 mg Quetiapine Fumarate (Seroquel) 50 mg PO Q4H PRN; Protocol PRN Reason: Agitation Quetiapine Fumarate (Seroquel) 300 mg PO AMHS MITCHELL; Protocol Last Admin: 08/22/18 09:27 Dose: 300 mg Tamsulosin HCl (Flomax) 0.4 mg PO DAILY MITCHELL Last Admin: 08/22/18 09:27 Dose: 0.4 mg - Labs Labs: 08/17/18 08:30 08/17/18 09:50 - Constitutional Appears: No Acute Distress - Head Exam Head Exam: ATRAUMATIC, NORMOCEPHALIC - Eye Exam Eye Exam: EOMI - ENT Exam ENT Exam: Mucous Membranes Moist - Respiratory Exam Respiratory Exam: Clear to Ausculation Bilateral. absent: Wheezes - Cardiovascular Exam Cardiovascular Exam: REGULAR RHYTHM, +S1, +S2 - GI/Abdominal Exam GI & Abdominal Exam: Soft. absent: Tenderness - Neurological Exam Neurological Exam: Alert, Awake, Oriented x3 - Psychiatric Exam Psychiatric exam: Normal Mood - Skin Skin Exam: Dry, Warm Assessment and Plan - Assessment and Plan (Free Text) Assessment: 59-year-old male with past medical history of bipolar and esophageal cancer s/p esophagectomy presents to the ED with increasing agitation. Patient was admitted to the psychiatric floor for further management. Infectious disease consulted for a possible pneumonia. However the shadow on the chest x-ray likely secondary to esophagectomy. Found to have a UTI with staph lucdunesis. Continue Keflex for UTI with staph lucdunesis. Rheumatologoc work up neg for: EROS, and RF, mildly elevated ESR and CRP Influenza and cpk were neg Follow with urology as outpt Monitor for any changes Case and plan was reviewed and discussed with Dr. Swenson <Jim Swenson - Last Filed: 08/22/18 16:25> Objective - Vital Signs/Intake and Output Vital Signs (last 24 hours): Temp Pulse Resp BP Pulse Ox 98.4 F 80 20 100/61 98 08/22/18 07:09 08/22/18 07:09 08/22/18 07:09 08/22/18 07:09 08/11/18 22:45 - Medications Medications: Current Medications Acetaminophen (Tylenol 325mg Tab) 650 mg PO Q4H PRN PRN Reason: Pain, Mild (1-3) Last Admin: 08/22/18 13:51 Dose: 650 mg Al Hydrox/Mg Hydrox/Simethicone (Maalox Plus 30 Ml) 30 ml PO DAILY PRN PRN Reason: Upset Stomach Last Admin: 08/21/18 11:06 Dose: 30 ml Benzocaine/Menthol (Cepacol Sore Throat) 1 marty MT Q2H PRN PRN Reason: Sore Throat Last Admin: 08/20/18 09:42 Dose: 1 marty Cephalexin Monohydrate (Keflex) 500 mg PO Q8 MITCHELL; Protocol Last Admin: 08/22/18 13:48 Dose: 500 mg Clonazepam (Klonopin) 2 mg PO HS MITCHELL; Protocol Last Admin: 08/21/18 21:26 Dose: 2 mg Magnesium Hydroxide (Milk Of Magnesia) 30 ml PO DAILY PRN PRN Reason: Constipation Last Admin: 08/16/18 08:42 Dose: 30 ml Pantoprazole Sodium (Protonix Ec Tab) 40 mg PO HS MITCHELL Last Admin: 08/21/18 21:26 Dose: 40 mg Quetiapine Fumarate (Seroquel) 50 mg PO Q4H PRN; Protocol PRN Reason: Agitation Quetiapine Fumarate (Seroquel) 300 mg PO AMHS MITCHELL; Protocol Last Admin: 08/22/18 09:27 Dose: 300 mg Tamsulosin HCl (Flomax) 0.4 mg PO DAILY MITCHELL Last Admin: 08/22/18 09:27 Dose: 0.4 mg - Labs Labs: 08/17/18 08:30 08/17/18 09:50 Assessment and Plan - Assessment and Plan (Free Text) Assessment: Infectious diseases Attending Physician Attestation Patient seen and examined, discussed with director medical economics. I have reviewed the patient's history of present illness, past medical, social, personal and family histories, pertinent physical exam findings, course so far in this hospital admission, pertinent laboratory and imaging results. I agree with the above findings, assessment and plan. In addition, complete 7-10 days of Keflex for complicated UTI with Staph lugdunensis. Patient to see Urology after Psych unit stay.
--- NOTE | 2018-08-22 15:12 | PCM.PYCHPN ---
Psychiatric Progress Note - Psychiatric Progress Note Patient seen today, length of contact: 30min Patient Chief Complaint: Patient has been under my care for more than 20 years. His brother who often supervise him and help support him financially expressed concern as the patient had become more agitated and paranoid over the past 2-3 weeks. Several events had interceded the. The communications and signals supervisor of the living residency where he resides in [facility] she expressed concern about his [place] bizarre behavior which consisted of pacing, agitation and some paranoia. The brother is subsequently found that he received a tablet making machine operator helper as a letter from the [employer] although he is not sure of the content. Patient has told nursing here that he may have been accused of sexual harassment. 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 He has on occasion become very agitated simulating either a bipolar disorder or a chronic paranoid schizophrenic disorder although these latter 2 diagnoses may be too s evere and not capture the full thrust of the patient's behavioral repertoire. He was last hospitalized approximately 20-30 years ago (I will check my records) In the past he has been resentful the parenting by his parents, the perceived favoritism given to his brother who appears to be more functional (and is a nephrology social worker at [facility] psychiatric unit). He has seen numerous mental health workers in psychotherapy and several psychiatrists. He has held a number of jobs. He has often wanted to have a significant relationship but his odd, eccentric, abrasive behavior has prevented this from happening. In the pace past several years he has been treated for esophageal cancer at [facility]. Problems Identified/Issues Discussed: Patient remains paranoid, angry, with pressured speech, much rationalization and denial He was interviewed and treatment team. He makes accusations and that his brother and the disposition are in cahoots to get money out of him. The He had some difficulties with the [employer] that necessitated that they send him a plastic maker letter, the content of which is unknown (but for which his brother is trying to gain a copy of them ( The patient can be intimidating in his agitation. He does not appear to be overtly sexually preoccupied, at least to the extent that he does not focus on or talk about sexual issues unless specifically asked (a such as an old girlfriend pinching his genitals) Medical Problems: These appear to be not as problematic problematic as initially thought He is a cancer (esophageal) survivor. His pulmonary status is being monitored by Dr. Lamb as well as his urologic status. Diagnostic Results: Results of lung imaging do not presently show pneumonia DSM 5 Symptoms Update: Met with patient and the brother and treatment team The patient is extremely frustrated and his rigid. He avoids taking any responsibility. He is good at rationalization, denial and projection. He refuses to look at his contributions to the reaction is from a number of other people, cannot meaningfully accept responsibility for his intimidating, socially inappropriate, socially intrusive behavior. He is angry at his brother. He has been apprised of the losses that he might suffer should he continue on his troublesome past, including being homeless. Medication Change: No ( ) Medical Record Reviewed: Yes Mental Status Examination - Cognitive Function Orientation: Person, Place, Situation, Time Memory: Intact Attention: WNL Concentration: WNL Association: WNL Fund of Knowledge: WN Decription of patient's judgement and insights: Patient lacks insight into the impact of his interactions with others and the import of the statements and behaviors that he exhibits on others - Mood Mood: Anxious, Other - Affect Affect: Other (labile) - Speech Speech: Appropriate - Formal Thought Process Formal Thought Process: Paranoia, Other - Suicidal Ideation Suicidal Ideation: No - Homicidal Ideation Homicidal Ideation: No Goal/Treatment Plan - Goal/Treatment Plan Progress Toward Problem(s) and Goals/Treatment Plan: Will adjust medication and get further details of recent potential precipitants to patient's present problematic behavior Patient remains agitated, with pressured speech, angry, accusatory. His Seroquel doses have been increased On August 14 have reviewed both nursing notes and notes from social work. Plans for discharge are premature at this juncture given the patient's levelofin . Stability. This may be the most sustained period of agitation I have experienced in my course of treatment with this patient On August 15 patient appears to be less agitated but upon questioning remains paranoid although less reactively so. 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 This has been the something that the patient has denied The patient seems to be improving. He is less condescending, less angry, less pressured in speech but still paranoid. He has also developed a new symptom complex consisting of upper torso pain. On August 19 it is appreciated that the patient while calming down somewhat, remains paranoid, condescending, lacking in insight, cannot guarantee for "safety", I. E., Due to his lack of understanding were denial of the impact of his behavior on librarians staff, he cannot say that he will not attend at the library he is minimizing of the anxiety caused by his possible legal involvement as a result of his perceived harassment [place] library staff. See earlier in this chart regarding treatment team meeting held today with the patient's brother trying to chart the patient's imminent discharge planning The patient is already on high dose of Seroquel (600 mg)
[2018-08-22] MEDS: Alum-Mag Hydrox-Simethicone Susp (30 mL) PO PRN (16:00)
[2018-08-22] MEDS: Pantoprazole 40 mg EC Tab PO SCH (21:46)
--- NOTE | 2018-08-23 11:03 | PN ---
DATE: 08/23/2018 SUBJECTIVE: A 67-year-old male in the psych unit, being followed by Dr. Lopez for bipolar disorder. This morning, he states that he is feeling a bit better. PHYSICAL EXAMINATION: VITAL SIGNS: His temperature is 98.4. His blood pressure is 107/67, respiratory rate is 20, pulse is 71. GENERAL: He is alert and oriented x3. LUNGS: Clear. HEART: S1, S2 rhythm. ABDOMEN: Soft. EXTREMITIES: No evidence of edema. LABORATORY DATA: He had laboratory bocanegra a negative rheumatoid factor and a negative EROS. MEDICATIONS: He is currently on Flomax 0.4 daily, Keflex 500 every 8 hours, Klonopin 2 mg at bedtime, Seroquel 50 mg every 4 hours p.r.n. and 300 mg p.o. in morning and at bedtime, Protonix 40 mg daily, Tylenol two tablets for mild pain every 4 hours, milk of magnesia p.r.n., Maalox p.r.n., and Protonix 40 daily. ASSESSMENT AND PLAN: 1. He has urinary retention with urinary tract infection and is currently receiving antibiotics, Keflex to complete 7 to 10 days as recommended by Infectious Disease. Urology is seeing the patient, recommending outpatient followup once he finishes his care in the psychiatric unit. 2. He has a history of gastroesophageal reflux disease, on Protonix with a history of an esophageal surgery in 2009 for esophageal cancer at [facility] [place] with a gastric pull-up procedure followed by chemotherapy. He has not seen a banquet lead for a while but was planning to do that as an outpatient and schedule an appointment. 3. He has been seen by Orthopedics here for history of bilateral rotator cuff disorder. He is receiving occupational and physical therapy for that. 4. He has bipolar disorder by history and is on the above-mentioned medications, being followed by Dr. Lopez. Continue current level of care and follow the patient. Thank you for allowing me to participate in the care of your patient. Marielos Lamb MD
--- NOTE | 2018-08-23 11:09 | PCM.PYCHPN ---
Psychiatric Progress Note - Psychiatric Progress Note Patient seen today, length of contact: 30min Patient Chief Complaint: "Spasm my muscles, everything is hurting" Problems Identified/Issues Discussed: Risk/benefits and alternatives of medications discussed, suicide/ homicide prevention, past psychiatric h/o, current psychiatric symptoms, medical problems, risk/benefits and alternatives of medications, medications compliance, coping strategies, substance abuse h/o, relapse prevention, importance of follow up with psychiatrist and therapist, discharge plan. Medical Problems: Multiple medical issues, please see Dr. Lamb note for more detailed information. Today patient complaining of muscle spasm also pain in his body, t his loan underwriter offered Neurontin, risk/benefits/alternatives discussed with the patient. Diagnostic Results: 08/17/18 08:30 08/17/18 09:50 Lab Results 08/21/18 14:00: Rheumatoid Arth Interp Negative, EROS 6 Profile Negative 08/21/18 14:00: C-Reactive Protein 13.20 H 08/21/18 13:30: ESR 22 H 08/20/18 19:20: Total Creatine Kinase 27 L 08/20/18 12:17: Influenza Typ A,B (EIA) Negative for flu a/b 08/17/18 09:50: Potassium 4.1 08/17/18 08:30: Sodium 139, Potassium 5.1 H, Chloride 100, Carbon Dioxide 33, Anion Gap 11, BUN 21, Creatinine 1.1, Est GFR ( Amer) > 60, Est GFR (Non- Af Amer) > 60, Random Glucose 93, Calcium 10.1, Total Bilirubin 0.8, AST 30, ALT 22, Alkaline Phosphatase 75, Total Protein 7.9, Albumin 4.5, Globulin 3.4, Albumin/Globulin Ratio 1.3 08/17/18 08:30: WBC 5.3, RBC 5.17, Hgb 15.2, Hct 45.7, MCV 88.4, MCH 29.4, MCHC 33.3, RDW 13.3, Plt Count 160, MPV 10.1, Neut % (Auto) 50.3, Lymph % (Auto) 32.6, Barron % (Auto) 12.6 H, Eos % (Auto) 4.3, Baso % (Auto) 0.2, Lymph # (Auto) 1.7, Barron # (Auto) 0.7 H, Eos # (Auto) 0.2, Baso # (Auto) 0.01, Absolute Neuts (auto) 2.66 08/13/18 21:00: Ur L.pneumophila Ag Negative 08/13/18 10:50: Procalcitonin < 0.05 L 08/13/18 08:00: Free PSA 0.4, % Free PSA 13 L, Total PSA 3.1, Prostate Cancer Risk Pending 08/13/18 08:00: Sodium 139, Potassium 4.9, Chloride 104, Carbon Dioxide 31, Anion Gap 9 L, BUN 16, Creatinine 1.0, Est GFR ( Amer) > 60, Est GFR (Non-Af Amer) > 60, Random Glucose 97, Calcium 10.2, Total Bilirubin 1.3, AST 26, ALT 31, Alkaline Phosphatase 80, Total Protein 7.9, Albumin 4.4, Globulin 3.4, Albumin/Globulin Ratio 1.3 08/13/18 08:00: WBC 6.1 D, RBC 5.22, Hgb 15.5, Hct 46.2, MCV 88.5, MCH 29.7, MCHC 33.5, RDW 13.7, Plt Count 188, MPV 10.0, Neut % (Auto) 30.8 L, Lymph % (Auto) 55.5 H, Barron % (Auto) 10.5 H, Eos % (Auto) 3.0, Baso % (Auto) 0.2, Lymph # (Auto) 3.4, Barron # (Auto) 0.6, Eos # (Auto) 0.2, Baso # (Auto) 0.01, Absolute Neuts (auto) 1.87 08/12/18 22:10: Urine Color Yellow, Urine Appearance Cloudy, Urine pH 6.0, Ur Specific [place] 1.020, Urine Protein Trace H, Urine Glucose (UA) Negative, Urine Ketones Negative, Urine Blood Moderate H, Urine Nitrate Negative, Urine Bilirubin Negative, Urine Urobilinogen 0.2, Ur Leukocyte Esterase Large H, Urine RBC 25 - 30 H, Urine WBC Tntc H, Ur Epithelial Cells 3 - 4 08/12/18 15:00: Prostate Specific Ag 2.7 H 08/12/18 07:30: TSH 3rd Generation 4.05 08/12/18 07:30: Fasting Glucose 92, Triglycerides 50, Cholesterol 145, LDL Cholesterol Direct 76, HDL Cholesterol 51 08/11/18 20:27: Urine Opiates Screen Negative, Urine Methadone Screen Negative, Ur Barbiturates Screen Negative, Ur Phencyclidine Scrn Negative, Ur Amphetamines Screen Negative, U Benzodiazepines Scrn Negative, U Oth Cocaine Metabols Negative, U Cannabinoids Screen Negative 08/11/18 20:27: Urine Color Yellow, Urine Appearance Sl cloudy, Urine pH 6.5, Ur Specific [place] 1.020, Urine Protein Trace H, Urine Glucose (UA) Negative, Urine Ketones Negative, Urine Blood Large H, Urine Nitrate Negative, Urine Bilirubin Negative, Urine Urobilinogen 0.2, Ur Leukocyte Esterase Large H, Urine RBC Tntc H, Urine WBC 15 - 20 H, Ur Epithelial Cells Many H 08/11/18 19:18: Alcohol, Quantitative < 10 08/11/18 19:18: Salicylates < 1 L, Acetaminophen < 10.0 L 08/11/18 19:18: Sodium 139, Potassium 4.8, Chloride 102, Carbon Dioxide 30, Anion Gap 12, BUN 19, Creatinine 1.0, Est GFR ( Amer) > 60, Est GFR (Non- Af Amer) > 60, Random Glucose 106, Calcium 10.3, Total Bilirubin 0.7, AST 26, ALT 31, Alkaline Phosphatase 79, Total Protein 7.9, Albumin 4.4, Globulin 3.4, Albumin/Globulin Ratio 1.3 08/11/18 19:18: WBC 8.2, RBC 5.04, Hgb 15.1, Hct 44.6, MCV 88.5, MCH 30.0, MCHC 33.9, RDW 13.8, Plt Count 215, MPV 10.4, Neut % (Auto) 58.0, Lymph % (Auto) 33.6, Barron % (Auto) 7.4 H, Eos % (Auto) 0.9 L, Baso % (Auto) 0.1, Lymph # (Auto) 2.8, Barron # (Auto) 0.6, Eos # (Auto) 0.1, Baso # (Auto) 0.01, Absolute Neuts (auto) 4.77 Vital Signs Temp Pulse Resp BP Pulse Ox 08/22/18 16:00 71 107/67 08/22/18 07:09 98.4 F 80 20 100/61 02/07/19 16:00 78 106/70 08/21/18 06:59 99.3 F 72 20 96/61 L 08/20/18 15:00 98 H 20 114/83 08/20/18 07:14 98.4 F 82 20 98/62 L 08/20/18 02:43 99.6 F 08/19/18 16:00 82 124/87 08/19/18 07:13 98.1 F 87 20 95/61 L 08/18/18 16:53 68 120/70 08/18/18 08:48 97.6 F 08/18/18 07:00 97.8 F 78 19 116/79 08/17/18 16:00 86 123/90 08/17/18 07:00 97.7 F 76 20 109/75 08/16/18 16:00 69 90/57 L 08/16/18 07:29 97.5 F L 63 20 109/69 08/15/18 15:00 97.7 F 73 20 122/94 H 08/15/18 07:10 98.2 F 69 20 114/86 08/14/18 16:00 68 112/83 08/14/18 07:15 98.1 F 59 L 18 97/63 L 08/13/18 16:00 81 117/86 08/13/18 06:58 97.8 F 63 18 91/58 L 08/12/18 16:00 71 120/78 08/11/18 23:40 20 08/11/18 23:35 98.7 F 20 139/96 H 08/11/18 22:45 18 98 DSM 5 Symptoms Update: Covering for Dr. Lopez. Patient was seen and examined today in his room, patient presented to be guarded, patient reported that he has some muscle pain as well as some pins and needles in his arms and legs, this loan underwriter suggested Neurontin, patient is willing to try this medication. Overall patient is improving, but still has poor insight into his mental illness, family meeting took place here in [place] with patient brother yesterday August 22, 2018, please see social welfare administrator notes for more detailed information. Grooming appears adequate and he is oriented x3 with fair focus. Patient reports his mood as "well" and feels like he is improving. Patient reported that he tolerates medications well, denied any side effects, none was observed or reported, aims 0, no EPS. Patient has stayed mostly in his room and when he does come out into the unit, he keeps mostly to himself. There were no major behavioral issues overnight. Diagnostic Results: Paranoid Schizophrenia vs. Paranoid Personality Disorder Medication Change: Yes (Neurontin 100 mg 3 times a day started ) Medical Record Reviewed: Yes Consults ordered or reviewed: Medical consult appreciated, please see notes for more detailed information. Patient currently is on antibiotics for urinary tract infection Mental Status Examination - Cognitive Function Orientation: Person, Place, Situation, Time Memory: Intact Attention: WNL Concentration: WNL Association: WNL Fund of Knowledge: WNL - Mood Mood: Anxious - Affect Affect: Other (labile) - Speech Speech: Appropriate - Formal Thought Process Formal Thought Process: Paranoia, Other - Suicidal Ideation Suicidal Ideation: No - Homicidal Ideation Homicidal Ideation: No Goal/Treatment Plan - Goal/Treatment Plan Need for Continued Stay: Remain at risks for inpatient hospitalization, Severe depression anxiety, Discharge may exacerbated symptoms, Severe functional impairment Progress Toward Problem(s) and Goals/Treatment Plan: Milieu/structure/supportive therapy SW consultation for discharge plan and social issues Med management, will be continued current meds added Neurontin 100mg po tid Family involvement Follow up on labs Will monitor closely Pt was educated about risk/benefits and alternatives of medications, coping strategies (safety plan, suicide prevention), relapse prevention, importance of follow up with psychiatrist and therapist, stay away from drugs/alcohol/smoking Estimated Date of D/C: 08/26/18
[2018-08-23] MEDS: Alum-Mag Hydrox-Simethicone Susp (30 mL) PO PRN (17:15)
--- NOTE | 2018-08-23 19:53 | PN ---
DATE: 08/23/2018 SUBJECTIVE: The patient is seen in Psychiatric floor, in no acute distress, nontoxic. PHYSICAL EXAMINATION VITAL SIGNS: Temperature is 98, blood pressure is 120/80, respiratory rate of 18. HEENT: Unremarkable. NECK: Supple. CARDIOPULMONARY: Normal S1, S2. LUNGS: Have decreased breath sounds. ABDOMEN: Soft. LABORATORY DATA: Reveals a white count of 5.3, hemoglobin of 15. Chemistries are noted and microbiology reveals that the patient's urine culture is staph. Blood cultures are negative. ASSESSMENT AND PLAN: A 67-year-old male who was seen in Psychiatry with past medical history of bipolar, esophageal cancer, esophagectomy presented to the Emergency Room with increasing agitation and on Keflex for urinary tract infection with staphylococcus, which answers and the remainder of the workup in progress. Shar Pratt MD
[2018-08-23] MEDS: Pantoprazole 40 mg EC Tab PO SCH (21:44)
--- NOTE | 2018-08-24 12:05 | PCM.PYCHPN ---
Psychiatric Progress Note - Psychiatric Progress Note Patient seen today, length of contact: 30min Patient Chief Complaint: "Spasm my muscles, everything in my upper body is hurting" Problems Identified/Issues Discussed: Risk/benefits and alternatives of medications discussed, suicide/ homicide prevention, past psychiatric h/o, current psychiatric symptoms, medical proble ms, risk/benefits and alternatives of medications, medications compliance, coping strategies, substance abuse h/o, relapse prevention, importance of follow up with psychiatrist and therapist, discharge plan. Medical Problems: Multiple medical issues, please see Dr. Lamb note for more detailed information. Today patient complaining of muscle spasm also pain in his body, this underwriter mortgage loan offered Neurontin, risk/benefits/alternatives discussed with the patient. Diagnostic Results: 08/17/18 08:30 08/17/18 09:50 Lab Results 08/21/18 14:00: Rheumatoid Arth Interp Negative, EROS 6 Profile Negative 08/21/18 14:00: C-Reactive Protein 13.20 H 08/21/18 13:30: ESR 22 H 08/20/18 19:20: Total Creatine Kinase 27 L 08/20/18 12:17: Influenza Typ A,B (EIA) Negative for flu a/b 08/17/18 09:50: Potassium 4.1 08/17/18 08:30: Sodium 139, Potassium 5.1 H, Chloride 100, Carbon Dioxide 33, Anion Gap 11, BUN 21, Creatinine 1.1, Est GFR ( Amer) > 60, Est GFR (Non- Af Amer) > 60, Random Glucose 93, Calcium 10.1, Total Bilirubin 0.8, AST 30, ALT 22, Alkaline Phosphatase 75, Total Protein 7.9, Albumin 4.5, Globulin 3.4, Albumin/Globulin Ratio 1.3 08/17/18 08:30: WBC 5.3, RBC 5.17, Hgb 15.2, Hct 45.7, MCV 88.4, MCH 29.4, MCHC 33.3, RDW 13.3, Plt Count 160, MPV 10.1, Neut % (Auto) 50.3, Lymph % (Auto) 32.6, [place] % (Auto) 12.6 H, Eos % (Auto) 4.3, Baso % (Auto) 0.2, Lymph # (Auto) 1.7, [place] # (Auto) 0.7 H, Eos # (Auto) 0.2, Baso # (Auto) 0.01, Absolute Neuts (auto) 2.66 08/13/18 21:00: Ur L.pneumophila Ag Negative 08/13/18 10:50: Procalcitonin < 0.05 L 08/13/18 08:00: Free PSA 0.4, % Free PSA 13 L, Total PSA 3.1, Prostate Cancer Risk Pending 08/13/18 08:00: Sodium 139, Potassium 4.9, Chloride 104, Carbon Dioxide 31, Anion Gap 9 L, BUN 16, Creatinine 1.0, Est GFR ( Amer) > 60, Est GFR (Non-Af Amer) > 60, Random Glucose 97, Calcium 10.2, Total Bilirubin 1.3, AST 26, ALT 31, Alkaline Phosphatase 80, Total Protein 7.9, Albumin 4.4, Globulin 3.4, Albumin/Globulin Ratio 1.3 08/13/18 08:00: WBC 6.1 D, RBC 5.22, Hgb 15.5, Hct 46.2, MCV 88.5, MCH 29.7, MCHC 33.5, RDW 13.7, Plt Count 188, MPV 10.0, Neut % (Auto) 30.8 L, Lymph % (Auto) 55.5 H, [place] % (Auto) 10.5 H, Eos % (Auto) 3.0, Baso % (Auto) 0.2, Lymph # (Auto) 3.4, [place] # (Auto) 0.6, Eos # (Auto) 0.2, Baso # (Auto) 0.01, Absolute Neuts (auto) 1.87 08/12/18 22:10: Urine Color Yellow, Urine Appearance Cloudy, Urine pH 6.0, Ur Specific [place] 1.020, Urine Protein Trace H, Urine Glucose (UA) Negative, Urine Ketones Negative, Urine Blood Moderate H, Urine Nitrate Negative, Urine Bilirubin Negative, Urine Urobilinogen 0.2, Ur Leukocyte Esterase Large H, Urine RBC 25 - 30 H, Urine WBC Tntc H, Ur Epithelial Cells 3 - 4 08/12/18 15:00: Prostate Specific Ag 2.7 H 08/12/18 07:30: TSH 3rd Generation 4.05 08/12/18 07:30: Fasting Glucose 92, Triglycerides 50, Cholesterol 145, LDL Cholesterol Direct 76, HDL Cholesterol 51 08/11/18 20:27: Urine Opiates Screen Negative, Urine Methadone Screen Negative, Ur Barbiturates Screen Negative, Ur Phencyclidine Scrn Negative, Ur Amphetamines Screen Negative, U Benzodiazepines Scrn Negative, U Oth Cocaine Metabols Negative, U Cannabinoids Screen Negative 08/11/18 20:27: Urine Color Yellow, Urine Appearance Sl cloudy, Urine pH 6.5, Ur Specific [place] 1.020, Urine Protein Trace H, Urine Glucose (UA) Negative, Urine Ketones Negative, Urine Blood Large H, Urine Nitrate Negative, Urine Bilirubin Negative, Urine Urobilinogen 0.2, Ur Leukocyte Esterase Large H, Urine RBC Tntc H, Urine WBC 15 - 20 H, Ur Epithelial Cells Many H 08/11/18 19:18: Alcohol, Quantitative < 10 08/11/18 19:18: Salicylates < 1 L, Acetaminophen < 10.0 L 08/11/18 19:18: Sodium 139, Potassium 4.8, Chloride 102, Carbon Dioxide 30, Anion Gap 12, BUN 19, Creatinine 1.0, Est GFR ( Amer) > 60, Est GFR (Non- Af Amer) > 60, Random Glucose 106, Calcium 10.3, Total Bilirubin 0.7, AST 26, ALT 31, Alkaline Phosphatase 79, Total Protein 7.9, Albumin 4.4, Globulin 3.4, Albumin/Globulin Ratio 1.3 08/11/18 19:18: WBC 8.2, RBC 5.04, Hgb 15.1, Hct 44.6, MCV 88.5, MCH 30.0, MCHC 33.9, RDW 13.8, Plt Count 215, MPV 10.4, Neut % (Auto) 58.0, Lymph % (Auto) 33.6, [place] % (Auto) 7.4 H, Eos % (Auto) 0.9 L, Baso % (Auto) 0.1, Lymph # (Auto) 2.8, [place] # (Auto) 0.6, Eos # (Auto) 0.1, Baso # (Auto) 0.01, Absolute Neuts (auto) 4.77 Vital Signs Temp Pulse Resp BP Pulse Ox 08/22/18 16:00 71 107/67 02/08/19 07:09 98.4 F 80 20 100/61 08/21/18 16:00 78 106/70 08/21/18 06:59 99.3 F 72 20 96/61 L 08/20/18 15:00 98 H 20 114/83 08/20/18 07:14 98.4 F 82 20 98/62 L 08/20/18 02:43 99.6 F 08/19/18 16:00 82 124/87 08/19/18 07:13 98.1 F 87 20 95/61 L 08/18/18 16:53 68 120/70 08/18/18 08:48 97.6 F 08/18/18 07:00 97.8 F 78 19 116/79 08/17/18 16:00 86 123/90 08/17/18 07:00 97.7 F 76 20 109/75 08/16/18 16:00 69 90/57 L 08/16/18 07:29 97.5 F L 63 20 109/69 08/15/18 15:00 97.7 F 73 20 122/94 H 08/15/18 07:10 98.2 F 69 20 114/86 08/14/18 16:00 68 112/83 08/14/18 07:15 98.1 F 59 L 18 97/63 L 08/13/18 16:00 81 117/86 08/13/18 06:58 97.8 F 63 18 91/58 L 08/12/18 16:00 71 120/78 08/11/18 23:40 20 08/11/18 23:35 98.7 F 20 139/96 H 08/11/18 22:45 18 98 DSM 5 Symptoms Update: Covering for Dr. Lopez. Patient was seen and examined today in the day treatment area, patient presented to be guarded/unhappy/mildly irritable and annoyed, patient reported yesterday that he has muscle pain as well as some "pins and needles in my arms, upper torso", this underwriter mortgage loan suggested Neurontin yesterday, pt took 100mg tid, today agreed to 300mg tid. today pt continue to have a lot of somatic complaints such as "muscle pain only at the upper part of my body", pt patient is convinced that this is "due to all of the medications", this underwriter mortgage loan checked EPS, there is no tremor, no rigidity, this underwriter mortgage loan educated that it is highly unlikely that it is due to psychotropic medications. Patient was advised to speak to the primary care physician about his muscle pain and discuss about potential to be on muscle relaxants. Overall patient is improving, but still has poor insight into his mental illness, family meeting took place here in [place] with patient brother yesterday August 22, 2018, please see social worker health services notes for more detailed information. Grooming appears adequate and he is oriented x3 with fair focus. Patient reports his mood as "well" and feels like he is improving. Patient reported that he tolerates medications well, denied any side effects, none was observed or reported, aims 0, no EPS. Patient has stayed mostly in his room and when he does come out into the unit, he keeps mostly to himself. There were no major behavioral issues overnight. 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 Patient currently is on antibiotics for urinary tract infection Mental Status Examination - Cognitive Function Orientation: Person, Place, Situation, Time Memory: Intact Attention: WNL Concentration: WNL Association: WNL Fund of Knowledge: WNL - Mood Mood: Anxious - Affect Affect: Other (labile) - Speech Speech: Appropriate - Formal Thought Process Formal Thought Process: Paranoia, Other - Suicidal Ideation Suicidal Ideation: No - Homicidal Ideation Homicidal Ideation: No Goal/Treatment Plan - Goal/Treatment Plan Need for Continued Stay: Remain at risks for inpatient hospitalization, Severe depression anxiety, Discharge may exacerbated symptoms, Severe functional impairment Progress Toward Problem(s) and Goals/Treatment Plan: Milieu/structure/supportive therapy SW consultation for discharge plan and social issues Med management, will be continued current meds added Neurontin 300mg po tid Family involvement Follow up on labs Will monitor closely Pt was educated about risk/benefits and alternatives of medications, coping st rategies (safety plan, suicide prevention), relapse prevention, importance of follow up with psychiatrist and therapist, stay away from drugs/alcohol/smoking Estimated Date of D/C: 08/26/18
--- NOTE | 2018-08-24 14:05 | PN ---
DATE: 08/24/2018 SUBJECTIVE: A 67-year-old male on the Psychiatry Unit being followed for bipolar disorder. PHYSICAL EXAMINATION: VITAL SIGNS: The patient is running a temperature of 100.3 orally, his blood pressure is 94/60, his pulse is 90, his respiratory rate is 19. LUNGS: Clear. HEART: Is in S1, S2 rhythm. ABDOMEN: Soft with positive bowel sounds. EXTREMITIES: Show no evidence of edema. He does have some discomfort in bilateral shoulders. MEDICATIONS: Currently, he is on Flomax, Keflex, Klonopin, Maalox, milk of magnesia, Neurontin, Protonix, Seroquel and Tylenol. ASSESSMENT AND PLAN: 1. He was found to have urinary tract infection, currently on Keflex, he is followed by Infectious Disease. 2. He had urinary retention, placed on Flomax by Urology. Recommendations are to followup the urinary retention once he is cleared by Psychiatry. 3. He is reported to have had a history of bilateral rotator cuff disorder, was seen by Orthopedics and occupational and physical therapy have been recommended. 4. He has a history of esophageal cancer which he had a gastric pull-up with chemotherapy in [facility] [place]. 5. Bipolar disorder. He will continue current medical management at this time and monitor his temperature and followup his labs. Marielos Lamb MD
--- NOTE | 2018-08-24 17:26 | CP.PCM.PN ---
Subjective - Date & Time of Evaluation Date of Evaluation: 08/24/18 Time of Evaluation: 10:45 - Subjective Subjective: Had 100.3 F temperature measured this morning but patient denies chills, no rhinorrhea, no cough, no more dysuria, no diarrhea, no abdominal pain. Objective - Vital Signs/Intake and Output Vital Signs (last 24 hours): Temp Pulse Resp BP Pulse Ox 98.8 F 90 19 94/60 L 98 08/24/18 09:21 08/24/18 07:13 08/24/18 07:13 08/24/18 07:13 08/11/18 22:45 - Medications Medications: Current Medications Acetaminophen (Tylenol 325mg Tab) 650 mg PO Q4H PRN PRN Reason: Pain, Mild (1-3) Last Admin: 08/24/18 09:21 Dose: 650 mg Al Hydrox/Mg Hydrox/Simethicone (Maalox Plus 30 Ml) 30 ml PO DAILY PRN PRN Reason: Upset Stomach Last Admin: 08/23/18 17:15 Dose: 30 ml Benzocaine/Menthol (Cepacol Sore Throat) 1 marty MT Q2H PRN PRN Reason: Sore Throat Last Admin: 08/20/18 09:42 Dose: 1 marty Cephalexin Monohydrate (Keflex) 500 mg PO Q8 MITCHELL; Protocol Last Admin: 08/24/18 05:51 Dose: 500 mg Clonazepam (Klonopin) 2 mg PO HS MITCHELL; Protocol Last Admin: 08/23/18 21:44 Dose: 2 mg Gabapentin (Neurontin) 100 mg PO TID MITCHELL; Protocol Last Admin: 08/24/18 09:21 Dose: 100 mg Magnesium Hydroxide (Milk Of Magnesia) 30 ml PO DAILY PRN PRN Reason: Constipation Last Admin: 08/16/18 08:42 Dose: 30 ml Pantoprazole Sodium (Protonix Ec Tab) 40 mg PO HS MITCHELL Last Admin: 08/23/18 21:44 Dose: 40 mg Quetiapine Fumarate (Seroquel) 50 mg PO Q4H PRN; Protocol PRN Reason: Agitation Quetiapine Fumarate (Seroquel) 300 mg PO AMHS MITCHELL; Protocol Last Admin: 08/24/18 09:21 Dose: 300 mg Tamsulosin HCl (Flomax) 0.4 mg PO DAILY MITCHELL Last Admin: 08/24/18 09:20 Dose: 0.4 mg - Labs Labs: 08/17/18 08:30 08/17/18 09:50 - Constitutional Appears: Chronically Ill - Head Exam Head Exam: NORMAL INSPECTION - Respiratory Exam Respiratory Exam: Decreased Breath Sounds - Cardiovascular Exam Cardiovascular Exam: +S1, +S2 - GI/Abdominal Exam GI & Abdominal Exam: Soft. absent: Tenderness Assessment and Plan - Assessment and Plan (Free Text) Plan: assessment consider Staph lugdunensis UTI in this patient with urinary retention no pneumonia noted on CT chest - shadow noted on CXR probable from the stomach pulled up after esophagectomy esophageal cancer S/P esophagectomy bipolar disorder Plan continue Keflex day 10 of 10 days will repeat urine cx and monitor for fevers patient will be seen by Urology after his stay in the Psych unit as per Dr. Lamb will continue to monitor clinically
[2018-08-24] MEDS: Pantoprazole 40 mg EC Tab PO SCH (21:50)
[2018-08-25 08:11] LABS: BASO # 0.01 K/mm3 (0.0-2.0); BASO % 0.1 % (0.0-3.0); EOS # 0.1 (0.0-0.7); EOS % 1.7 % (1.5-5.0); HEMOGLOBIN 14.3 g/dL (14.0-18.0); LYMPH # 3.8 (1.2-3.4); LYMPH % 53.6 % (22.0-35.0); MEAN CELL VOLUME 88.9 fl (80.0-105.0); MEAN CORPUSCULAR HEMOGLOBIN 29.9 pg (25.0-35.0); MEAN CORPUSCULAR HGB CONC 33.6 g/dl (31.0-37.0); MEAN PLATELET VOLUME 10.4 fl (7.0-11.0); MONO # 0.4 (0.1-0.6); MONO % 5.4 % (1.0-6.0); RBC 4.79 10^6/uL (3.5-6.1); RED CELL DISTRIBUTION WIDTH 13.3 % (11.5-14.5)
[2018-08-25 08:21] LABS: ALB/GLOB RATIO 1.1 (1.1-1.8); ALT/SGPT 32 U/L (7-56); AST/SGOT 36 U/L (17-59); BLOOD UREA NITROGEN 26 mg/dL (7-21); CALCIUM 9.4 mg/dL (8.4-10.5); GFR NON-AFRICAN AMERICAN > 60
--- NOTE | 2018-08-25 12:32 | PCM.PYCHPN ---
Psychiatric Progress Note - Psychiatric Progress Note Patient seen today, length of contact: 30min Patient Chief Complaint: Patient has been under my care for more than 20 years. His brother who often supervise him and help support him financially expressed concern as the patient had become more agitated and paranoid over the past 2-3 weeks. Several events had interceded the. The hairspring fabrication supervisor of the living residency where he resides in [facility] she expressed concern about his [place] bizarre behavior which consisted of pacing, agitation and some paranoia. The brother is subsequently found that he received a business strategy manager as a letter from the [employer] although he is not sure of the content. Patient has told nursing here that he may have been accused of sexual harassment. 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 He has on occasion become very agitated simulating either a bipolar disorder or a chronic paranoid schizophrenic disorder although these latter 2 diagnoses may be too s evere and not capture the full thrust of the patient's behavioral repertoire. He was last hospitalized approximately 20-30 years ago (I will check my records) In the past he has been resentful the parenting by his parents, the perceived favoritism given to his brother who appears to be more functional (and is a social media marketer at [facility] psychiatric unit). He has seen numerous mental health workers in psychotherapy and several psychiatrists. He has held a number of jobs. He has often wanted to have a significant relationship but his odd, eccentric, abrasive behavior has prevented this from happening. In the pace past several years he has been treated for esophageal cancer at [facility]. Problems Identified/Issues Discussed: Patient remains paranoid, angry, with pressured speech, much rationalization and denial He was interviewed and treatment team. He makes accusations and that his brother and the disposition are in cahoots to get money out of him. The He had some difficulties with the [employer] that necessitated that they send him a director export letter, the content of which is unknown (but for which his brother is trying to gain a copy of them ( The patient can be intimidating in his agitation. He does not appear to be overtly sexually preoccupied, at least to the extent that he does not focus on or talk about sexual issues unless specifically asked (a such as an old girlfriend pinching his genitals) Medical Problems: These appear to be not as problematic problematic as initially thought He is a cancer (esophageal) survivor. His pulmonary status is being monitored by Dr. Lamb as well as his urologic status. Diagnostic Results: Results of lung imaging do not presently show pneumonia DSM 5 Symptoms Update: The patient's mood and affect appears to be improving. He is less hostile. He is presently engaged in what could be called a therapeutic group session with 3 women who are listening to what he has to say, giving him feedback, providing him with much needed attention. Whether he is able to control his present well-modulated the behavior is difficult to say and will be determined when the patient is discharged to I have reviewed his situation with social work. Will discuss case with brother. We will try to offer patient a behavioral "contract" of expectations of his behavior upon the discharge from the hospital. When all of these are met satisfactorily with staff the patient will be a candidate for discharge. Medication Change: Yes (Neurontin 300 mg 3 times a day) Medical Record Reviewed: Yes Mental Status Examination - Cognitive Function Orientation: Person, Place, Situation, Time Memory: Intact Attention: WNL Concentration: WNL Association: [facility] Fund of Knowledge: [facility] Decription of patient's judgement and insights: Remains in much denial but seems to be enjoying how attention he is getting from several women patients. - Mood Mood: Anxious - Affect Affect: Other (labile) - Speech Speech: Appropriate - Formal Thought Process Formal Thought Process: Paranoia, Other - Suicidal Ideation Suicidal Ideation: No - Homicidal Ideation Homicidal Ideation: No Goal/Treatment Plan - Goal/Treatment Plan Need for Continued Stay: Remain at risks for inpatient hospitalization, Severe depression anxiety, Discharge may exacerbated symptoms, Severe functional impairment Progress Toward Problem(s) and Goals/Treatment Plan: Will adjust medication and get further details of recent potential precipitants to patient's present problematic behavior Patient remains agitated, with pressured speech, angry, accusatory. His Seroquel doses have been increased On August 14 have reviewed both nursing notes and notes from social work. Plans for discharge are premature at this juncture given the patient's levelofin . Stability. This may be the most sustained period of agitation I have experienced in my course of treatment with this patient On August 15 patient appears to be less agitated but upon questioning remains paranoid although less reactively so. 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 This has been the something that the patient has denied The patient seems to be improving. He is less condescending, less angry, less pressured in speech but still paranoid. He has also developed a new symptom complex consisting of upper torso pain. On August 19 it is appreciated that the patient while calming down somewhat, remains paranoid, condescending, lacking in insight, cannot guarantee for "safety", I. E., Due to his lack of understanding were denial of the impact of his behavior on librarians staff, he cannot say that he will not attend at the library he is minimizing of the anxiety caused by his possible legal involvement as a result of his perceived harassment [place] [facility] staff. See earlier in this chart regarding treatment team meeting held today with the patient's brother trying to chart the patient's imminent discharge planning The patient is already on high dose of Seroquel (600 mg) On August 25 the patient appears to be improving in mood, affect, level of hostility, intensity of paranoia, oppositional behavior. I have reviewed the situation with social work including the possibility of now working towards a agreeable discharge plan that would include the patient expressing some understanding of concerns by society of his behavior and of the need to chew dress and a ladies concerns. The patient is able to agree to this, this is being reinforced due to his brother, the patient would be a candidate for now outpatient care. Estimated Date of D/C: 08/26/18
--- NOTE | 2018-08-25 14:15 | CP.PCM.PN ---
Subjective - Date & Time of Evaluation Date of Evaluation: 08/25/18 Time of Evaluation: 09:00 - Subjective Subjective: Afebrile, comfortable, no dysuria currently. Objective - Vital Signs/Intake and Output Vital Signs (last 24 hours): Temp Pulse Resp BP Pulse Ox 98.8 F 90 19 94/60 L 98 08/24/18 09:21 08/24/18 07:13 08/24/18 07:13 08/24/18 07:13 08/11/18 22:45 - Medications Medications: Current Medications Acetaminophen (Tylenol 325mg Tab) 650 mg PO Q4H PRN PRN Reason: Pain, Mild (1-3) Last Admin: 08/24/18 09:21 Dose: 650 mg Al Hydrox/Mg Hydrox/Simethicone (Maalox Plus 30 Ml) 30 ml PO DAILY PRN PRN Reason: Upset Stomach Last Admin: 08/23/18 17:15 Dose: 30 ml Benzocaine/Menthol (Cepacol Sore Throat) 1 marty MT Q2H PRN PRN Reason: Sore Throat Last Admin: 08/20/18 09:42 Dose: 1 marty Cephalexin Monohydrate (Keflex) 500 mg PO Q8 MITCHELL; Protocol Last Admin: 08/24/18 15:06 Dose: 500 mg Clonazepam (Klonopin) 2 mg PO HS MITCHELL; Protocol Last Admin: 08/23/18 21:44 Dose: 2 mg Gabapentin (Neurontin) 300 mg PO TID MITCHELL; Protocol Last Admin: 08/24/18 15:07 Dose: 300 mg Magnesium Hydroxide (Milk Of Magnesia) 30 ml PO DAILY PRN PRN Reason: Constipation Last Admin: 08/16/18 08:42 Dose: 30 ml Pantoprazole Sodium (Protonix Ec Tab) 40 mg PO HS MITCHELL Last Admin: 08/23/18 21:44 Dose: 40 mg Quetiapine Fumarate (Seroquel) 50 mg PO Q4H PRN; Protocol PRN Reason: Agitation Quetiapine Fumarate (Seroquel) 300 mg PO AMHS MITCHELL; Protocol Last Admin: 08/24/18 09:21 Dose: 300 mg Tamsulosin HCl (Flomax) 0.4 mg PO DAILY MITCHELL Last Admin: 08/24/18 09:20 Dose: 0.4 mg - Labs Labs: 08/17/18 08:30 08/17/18 09:50 - Constitutional Appears: Chronically Ill - Head Exam Head Exam: NORMAL INSPECTION Assessment and Plan - Assessment and Plan (Free Text) Plan: assessment consider Staph lugdunensis UTI in this patient with urinary retention no pneumonia noted on CT chest - shadow noted on CXR probable from the stomach pulled up after esophagectomy esophageal cancer S/P esophagectomy bipolar disorder Plan completed 10 days of Keflex awaiting repeat urine cx results patient will be seen by Urology after his stay in the Psych unit as per Dr. Lamb will continue to monitor clinically
--- NOTE | 2018-08-25 20:54 | PN ---
DATE: 08/25/2018 SUBJECTIVE: This morning the patient is stating that he is feeling a bit better. PHYSICAL EXAMINATION: VITAL SIGNS: His temperature is 97.9, his blood pressure is 100/66, his respiratory rate is 20, his pulse is 74. LUNGS: Clear. HEART: Is in S1, S2 rhythm. ABDOMEN: Soft with positive bowel sounds. EXTREMITIES: Show no evidence of edema. LABORATORY DATA: WBC is 7, RBC is 4.79, hemoglobin is 14.3, hematocrit is 42.6, platelet count is 176. Chemistry shows a sodium of 140, potassium 4.6, chloride 104, BUN is 26, creatinine is 1.1. His LFTs are normal. PLAN: The patient is currently receiving therapy for urinary tract infection with urinary retention. He is completing his course of Keflex. He will continue on his Flomax and has been recommended that when he finishes his therapy on the psychiatric unit, he would be followed by a urologist as an outpatient. He continues on Protonix for his gastroesophageal reflux and he is on his psychiatric meds as prescribed by Dr. Lopez. Marielos Lamb MD
[2018-08-25] MEDS: Pantoprazole 40 mg EC Tab PO SCH (21:33)
--- NOTE | 2018-08-26 04:20 | CP.PCM.PN ---
<YolyKen L - Last Filed: 08/26/18 04:20> Subjective - Date & Time of Evaluation Date of Evaluation: 08/26/18 Time of Evaluation: 04:10 - Subjective Subjective: Patient was noted to have an unwitnessed fall. Patient does not complain of any symptoms at this time, states that he lost his balance in the bathroom and fell. Denies head trauma, loss of consciousness, headache, dizziness, nausea, vomiting, auditory or visual changes. Vitals and neurological exam were within normal limits. Continue to monitor patient, no escalation of care indicated at this time. Ken Frederick PGY-1 Objective - Vital Signs/Intake and Output Vital Signs (last 24 hours): Temp Pulse Resp BP Pulse Ox 97.9 F 73 20 121/82 98 08/25/18 07:15 08/26/18 03:06 08/25/18 07:15 08/26/18 03:06 08/11/18 22:45 - Medications Medications: Current Medications Acetaminophen (Tylenol 325mg Tab) 650 mg PO Q4H PRN PRN Reason: Pain, Mild (1-3) Last Admin: 08/24/18 09:21 Dose: 650 mg Al Hydrox/Mg Hydrox/Simethicone (Maalox Plus 30 Ml) 30 ml PO DAILY PRN PRN Reason: Upset Stomach Last Admin: 08/23/18 17:15 Dose: 30 ml Benzocaine/Menthol (Cepacol Sore Throat) 1 marty MT Q2H PRN PRN Reason: Sore Throat Last Admin: 08/20/18 09:42 Dose: 1 marty Clonazepam (Klonopin) 2 mg PO HS [facility]; Protocol Last Admin: 08/25/18 21:32 Dose: 2 mg Gabapentin (Neurontin) 300 mg PO TID [facility]; Protocol Last Admin: 08/25/18 18:00 Dose: 300 mg Magnesium Hydroxide (Milk Of Magnesia) 30 ml PO DAILY PRN PRN Reason: Constipation Last Admin: 08/16/18 08:42 Dose: 30 ml Pantoprazole Sodium (Protonix Ec Tab) 40 mg PO HS [facility] Last Admin: 08/25/18 21:33 Dose: 40 mg Quetiapine Fumarate (Seroquel) 50 mg PO Q4H PRN; Protocol PRN Reason: Agitation Quetiapine Fumarate (Seroquel) 300 mg PO AMHS [facility]; Protocol Last Admin: 08/25/18 21:33 Dose: 300 mg Tamsulosin HCl (Flomax) 0.4 mg PO DAILY [facility] Last Admin: 08/25/18 09:21 Dose: 0.4 mg - Labs Labs: 08/25/18 08:00 08/25/18 08:00 <Foreign Mckeon - Last Filed: 08/26/18 19:08> Objective - Vital Signs/Intake and Output Vital Signs (last 24 hours): Temp Pulse Resp BP Pulse Ox 97.8 F 77 20 134/90 98 08/26/18 07:00 08/26/18 16:00 08/26/18 07:00 08/26/18 16:00 08/11/18 22:45 - Medications Medications: Current Medications Acetaminophen (Tylenol 325mg Tab) 650 mg PO Q4H PRN PRN Reason: Pain, Mild (1-3) Last Admin: 08/24/18 09:21 Dose: 650 mg Al Hydrox/Mg Hydrox/Simethicone (Maalox Plus 30 Ml) 30 ml PO DAILY PRN PRN Reason: Upset Stomach Last Admin: 08/23/18 17:15 Dose: 30 ml Benzocaine/Menthol (Cepacol Sore Throat) 1 marty MT Q2H PRN PRN Reason: Sore Throat Last Admin: 08/20/18 09:42 Dose: 1 marty Clonazepam (Klonopin) 2 mg PO HS [facility]; Protocol Last Admin: 08/25/18 21:32 Dose: 2 mg Gabapentin (Neurontin) 300 mg PO TID [facility]; Protocol Last Admin: 08/26/18 17:53 Dose: 300 mg Magnesium Hydroxide (Milk Of Magnesia) 30 ml PO DAILY PRN PRN Reason: Constipation Last Admin: 08/16/18 08:42 Dose: 30 ml Pantoprazole Sodium (Protonix Ec Tab) 40 mg PO HS [facility] Last Admin: 08/25/18 21:33 Dose: 40 mg Quetiapine Fumarate (Seroquel) 50 mg PO Q4H PRN; Protocol PRN Reason: Agitation Quetiapine Fumarate (Seroquel) 300 mg PO AMHS [facility]; Protocol Last Admin: 08/26/18 09:00 Dose: 300 mg Tamsulosin HCl (Flomax) 0.4 mg PO DAILY [facility] Last Admin: 08/26/18 09:01 Dose: 0.4 mg - Labs Labs: 08/25/18 08:00 08/25/18 08:00 Attending/Attestation - Attestation I have personally seen and examined this patient.: No I have fully participated in the care of the patient.: No I have reviewed all pertinent clinical information, including history, physical exam and plan: No
--- NOTE | 2018-08-26 15:05 | CP.PCM.PN ---
Subjective - Date & Time of Evaluation Date of Evaluation: 08/26/18 Time of Evaluation: 08:40 - Subjective Subjective: Comfortable, afebrile. Objective - Vital Signs/Intake and Output Vital Signs (last 24 hours): Temp Pulse Resp BP Pulse Ox 97.9 F 74 20 100/66 98 08/25/18 07:15 08/25/18 07:15 08/25/18 07:15 08/25/18 07:15 08/11/18 22:45 - Medications Medications: Current Medications Acetaminophen (Tylenol 325mg Tab) 650 mg PO Q4H PRN PRN Reason: Pain, Mild (1-3) Last Admin: 08/24/18 09:21 Dose: 650 mg Al Hydrox/Mg Hydrox/Simethicone (Maalox Plus 30 Ml) 30 ml PO DAILY PRN PRN Reason: Upset Stomach Last Admin: 08/23/18 17:15 Dose: 30 ml Benzocaine/Menthol (Cepacol Sore Throat) 1 marty MT Q2H PRN PRN Reason: Sore Throat Last Admin: 08/20/18 09:42 Dose: 1 marty Clonazepam (Klonopin) 2 mg PO HS [facility]; Protocol Last Admin: 08/24/18 21:49 Dose: 2 mg Gabapentin (Neurontin) 300 mg PO TID [facility]; Protocol Last Admin: 08/25/18 09:20 Dose: 300 mg Magnesium Hydroxide (Milk Of Magnesia) 30 ml PO DAILY PRN PRN Reason: Constipation Last Admin: 08/16/18 08:42 Dose: 30 ml Pantoprazole Sodium (Protonix Ec Tab) 40 mg PO HS [facility] Last Admin: 08/24/18 21:50 Dose: 40 mg Quetiapine Fumarate (Seroquel) 50 mg PO Q4H PRN; Protocol PRN Reason: Agitation Quetiapine Fumarate (Seroquel) 300 mg PO [facility]; Protocol Last Admin: 08/25/18 09:21 Dose: 300 mg Tamsulosin HCl (Flomax) 0.4 mg PO DAILY [facility] Last Admin: 08/25/18 09:21 Dose: 0.4 mg - Labs Labs: 08/25/18 08:00 08/25/18 08:00 - Constitutional Appears: Chronically Ill - Head Exam Head Exam: NORMAL INSPECTION - Respiratory Exam Respiratory Exam: Decreased Breath Sounds - Cardiovascular Exam Cardiovascular Exam: +S1, +S2 - GI/Abdominal Exam GI & Abdominal Exam: Soft. absent: Tenderness Assessment and Plan - Assessment and Plan (Free Text) Plan: assessment consider Staph lugdunensis UTI in this patient with urinary retention, S/P treatment with antibiotics no pneumonia noted on CT chest - shadow noted on CXR probable from the stomach pulled up after esophagectomy esophageal cancer S/P esophagectomy bipolar disorder Plan completed 10 days of Keflex repeat urine cx are negative patient will be seen by Urology after his stay in the Psych unit as per Dr. Lamb PSA is 3.1 will continue to monitor clinically
--- NOTE | 2018-08-26 19:06 | PN ---
DATE: 08/26/2018 SUBJECTIVE: This is 67-year-old male on the psychiatry unit being followed for bipolar disorder by Dr. Beau Lopez. This morning the patient is sitting in the group day room. The temp is 97.8, his pulse is 78, blood pressure is 121/84. He says that he is feeling a bit better this morning, offers no specific complaints. Does state that he lost his balance during the night while in the bathroom but denies any complaints of loss of consciousness and dizziness with secondary sequelae secondary to it. He was seen by house physician and the nursing staff was made aware and he denies any problems at this time. OBJECTIVE: GENERAL: He is alert and oriented x3. NECK: Supple. LUNGS: Clear. HEART: S1, S2 rhythm. ABDOMEN: Soft with positive bowel sounds. EXTREMITIES: Show no evidence of edema. LABORATORY DATA: His blood sugar is 88. The patient had a repeat urine culture which was negative. He has completed a course of antibiotics for Staphylococcus lugdunensis infection with history of urinary retention and was seen by Urology with the recommendation to continue Flomax and be seen as an outpatient by Urology for further workup. He continues on his Klonopin, Neurontin, Protonix, Seroquel and Tylenol p.r.n. and will continue current level of care. Thank you for allowing me to participate in the care and management of your patient. Marielos Lamb MD
[2018-08-26] MEDS: Pantoprazole 40 mg EC Tab PO SCH (21:23)
--- NOTE | 2018-08-26 22:17 | PCM.PYCHPN ---
Psychiatric Progress Note - Psychiatric Progress Note Patient seen today, length of contact: 30min Patient Chief Complaint: Patient has been under my care for more than 20 years. His brother who often supervise him and help support him financially expressed concern as the patient had become more agitated and paranoid over the past 2-3 weeks. Several events had interceded the. The shipwright supervisor of the living residency where he resides in [facility] she expressed concern about his [place] bizarre behavior which consisted of pacing, agitation and some paranoia. The brother is subsequently found that he received a electrician assistant as a letter from the triptap although he is not sure of the content. Patient has told nursing here that he may have been accused of sexual harassment. 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 He has on occasion become very agitated simulating either a bipolar disorder or a chronic paranoid schizophrenic disorder although these latter 2 diagnoses may be too s evere and not capture the full thrust of the patient's behavioral repertoire. He was last hospitalized approximately 20-30 years ago (I will check my records) In the past he has been resentful the parenting by his parents, the perceived favoritism given to his brother who appears to be more functional (and is a case management social worker at [facility] psychiatric unit). He has seen numerous mental health workers in psychotherapy and several psychiatrists. He has held a number of jobs. He has often wanted to have a significant relationship but his odd, eccentric, abrasive behavior has prevented this from happening. In the pace past several years he has been treated for esophageal cancer at [facility]. Problems Identified/Issues Discussed: Patient remains paranoid, angry, with pressured speech, much rationalization and denial He was interviewed and treatment team. He makes accusations and that his brother and the disposition are in cahoots to get money out of him. The He had some difficulties with the [employer] that necessitated that they send him a powersaw supervisor letter, the content of which is unknown (but for which his brother is trying to gain a copy of them ( The patient can be intimidating in his agitation. He does not appear to be overtly sexually preoccupied, at least to the extent that he does not focus on or talk about sexual issues unless specifically asked (a such as an old girlfriend pinching his genitals) Medical Problems: These appear to be not as problematic problematic as initially thought He is a cancer (esophageal) survivor. His pulmonary status is being monitored by Dr. Lamb as well as his urologic status. Diagnostic Results: Results of lung imaging do not presently show pneumonia Laboratory Results - last 72 hr 08/25/18 08/25/18 08/26/18 08:00 08:00 03:36 WBC 7.0 D RBC 4.79 Hgb 14.3 Hct 42.6 MCV 88.9 MCH 29.9 MCHC 33.6 RDW 13.3 Plt Count 176 MPV 10.4 Neut % (Auto) 39.2 L Lymph % (Auto) 53.6 H [place] % (Auto) 5.4 Eos % (Auto) 1.7 Baso % (Auto) 0.1 Lymph # (Auto) 3.8 H [place] # (Auto) 0.4 Eos # (Auto) 0.1 Baso # (Auto) 0.01 Absolute Neuts (auto) 2.74 Sodium 140 Potassium 4.6 Chloride 104 Carbon Dioxide 31 Anion Gap 10 BUN 26 H Creatinine 1.1 Est GFR ( Amer) > 60 Est GFR (Non-Af Amer) > 60 POC Glucose (mg/dL) 88 Random Glucose 103 Calcium 9.4 Total Bilirubin 0.5 AST 36 ALT 32 Alkaline Phosphatase 71 Total Protein 7.5 Albumin 4.0 Globulin 3.5 Albumin/Globulin Ratio 1.1 DSM 5 Symptoms Update: The patient appears appreciably,. He seems to into acting more and enjoys the interactive process, especially with females but not limited to such he is less paranoid but remains quite garrulous and self-centered. He had fallen last night and there is concern that he may have had a concussion although this concern is diminishing. I have reviewed his situation with Dr. Lamb and with nursing. If the patient can sustain his good progress he will be a candidate for discharge tomorrow He was "dressed rehearsing" what he is going to tell the board operator of the building complex he lives in, so as to for stool and the attempt at evicting him from his apartment. This is not looked upon as a favorable developments, to the extent that he is able to articulate some of the behavioral mistakes he has made recently. Medication Change: Yes (Neurontin 300 mg 3 times a day) Medical Record Reviewed: Yes Consults ordered or reviewed: Pulmonology, internal medicine consults reviewed Mental Status Examination - Cognitive Function Orientation: Person, Place, Situation, Time Memory: Intact Attention: WNL Concentration: WNL Association: WNL Fund of Knowledge: WNL Decription of patient's judgement and insights: Remains in much denial but seems to be enjoying how attention he is getting from several women patients. - Mood Mood: Neutral - Affect Affect: Broad, Other (labile) - Speech Speech: Appropriate, Loud - Formal Thought Process Formal Thought Process: Paranoia, Other - Suicidal Ideation Suicidal Ideation: No - Homicidal Ideation Homicidal Ideation: No Goal/Treatment Plan - Goal/Treatment Plan Need for Continued Stay: Remain at risks for inpatient hospitalization, Severe depression anxiety, Discharge may exacerbated symptoms, Severe functional impairment Progress Toward Problem(s) and Goals/Treatment Plan: Will adjust medication and get further details of recent potential precipitants to patient's present problematic behavior Patient remains agitated, with pressured speech, angry, accusatory. His Seroquel doses have been increased On August 14 have reviewed both nursing notes and notes from social work. Plans for discharge are premature at this juncture given the patient's levelofin . Stability. This may be the most sustained period of agitation I have experienced in my course of treatment with this patient On August 15 patient appears to be less agitated but upon questioning remains paranoid although less reactively so. 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 This has been the something that the patient has denied The patient seems to be improving. He is less condescending, less angry, less pressured in speech but still paranoid. He has also developed a new symptom complex consisting of upper torso pain. On August 19 it is appreciated that the patient while calming down somewhat, remains paranoid, condescending, lacking in insight, cannot guarantee for "safety", I. E., Due to his lack of understanding were denial of the impact of his behavior on librarians staff, he cannot say that he will not attend at the library he is minimizing of the anxiety caused by his possible legal involvement as a result of his perceived harassment [facility] staff. See earlier in this chart regarding treatment team meeting held today with the patient's brother trying to chart the patient's imminent discharge planning The patient is already on high dose of Seroquel (600 mg) On August 25 the patient appears to be improving in mood, affect, level of hostility, intensity of paranoia, oppositional behavior. I have reviewed the situation with social work including the possibility of now working towards a agreeable discharge plan that would include the patient expressing some understanding of concerns by society of his behavior and of the need to chew dress and a ladies concerns. The patient is able to agree to this, this is being reinforced due to his brother, the patient would be a candidate for now outpatient care. Estimated Date of D/C: 08/26/18
[2018-08-27 07:14] VITALS: RESP 18; TEMP 98.3
--- NOTE | 2018-08-27 13:49 | CP.PCM.PN ---
Subjective - Date & Time of Evaluation Date of Evaluation: 08/27/18 Time of Evaluation: 08:50 - Subjective Subjective: Afebrile, comfortable. Objective - Vital Signs/Intake and Output Vital Signs (last 24 hours): Temp Pulse Resp BP Pulse Ox 97.8 F 78 20 121/84 98 08/26/18 07:00 08/26/18 07:00 08/26/18 07:00 08/26/18 07:00 08/11/18 22:45 - Medications Medications: Current Medications Acetaminophen (Tylenol 325mg Tab) 650 mg PO Q4H PRN PRN Reason: Pain, Mild (1-3) Last Admin: 08/24/18 09:21 Dose: 650 mg Al Hydrox/Mg Hydrox/Simethicone (Maalox Plus 30 Ml) 30 ml PO DAILY PRN PRN Reason: Upset Stomach Last Admin: 08/23/18 17:15 Dose: 30 ml Benzocaine/Menthol (Cepacol Sore Throat) 1 marty MT Q2H PRN PRN Reason: Sore Throat Last Admin: 08/20/18 09:42 Dose: 1 marty Clonazepam (Klonopin) 2 mg PO HS [facility]; Protocol Last Admin: 08/25/18 21:32 Dose: 2 mg Gabapentin (Neurontin) 300 mg PO TID [facility]; Protocol Last Admin: 08/26/18 13:58 Dose: 300 mg Magnesium Hydroxide (Milk Of Magnesia) 30 ml PO DAILY PRN PRN Reason: Constipation Last Admin: 08/16/18 08:42 Dose: 30 ml Pantoprazole Sodium (Protonix Ec Tab) 40 mg PO HS [facility] Last Admin: 08/25/18 21:33 Dose: 40 mg Quetiapine Fumarate (Seroquel) 50 mg PO Q4H PRN; Protocol PRN Reason: Agitation Quetiapine Fumarate (Seroquel) 300 mg PO AMHS [facility]; Protocol Last Admin: 08/26/18 09:00 Dose: 300 mg Tamsulosin HCl (Flomax) 0.4 mg PO DAILY [facility] Last Admin: 08/26/18 09:01 Dose: 0.4 mg - Labs Labs: 08/25/18 08:00 08/25/18 08:00 - Constitutional Appears: Chronically Ill - Head Exam Head Exam: NORMAL INSPECTION - Respiratory Exam Respiratory Exam: Decreased Breath Sounds - Cardiovascular Exam Cardiovascular Exam: +S1, +S2 - GI/Abdominal Exam GI & Abdominal Exam: Soft. absent: Tenderness Assessment and Plan - Assessment and Plan (Free Text) Plan: assessment consider Staph lugdunensis UTI in this patient with urinary retention, S/P treatment with antibiotics no pneumonia noted on CT chest - shadow noted on CXR probable from the stomach pulled up after esophagectomy esophageal cancer S/P esophagectomy bipolar disorder Plan completed 10 days of Keflex repeat urine cx are negative patient will be seen by Urology after his stay in the Psych unit as per Dr. Lamb PSA is only 3.1 will continue to monitor clinically while the patient is in the hospital
--- NOTE | 2018-08-27 15:07 | CT ---
Date of service: 08/27/2018 PROCEDURE: CT HEAD WITHOUT CONTRAST. HISTORY: UNSTEADY BALANCE COMPARISON: None available. TECHNIQUE: Axial computed tomography images were obtained through the head/brain without intravenous contrast. Radiation dose: Total exam DLP = 1013.85 mGy-cm. This CT exam was performed using one or more of the following dose reduction techniques: Automated exposure control, adjustment of the mA and/or kV according to patient size, and/or use of iterative reconstruction technique. FINDINGS: HEMORRHAGE: No intracranial hemorrhage. BRAIN: Rivera-white matter differentiation is preserved. There is no mass, mass effect or abnormal extra-axial fluid collection. There is no territorial infarction. The midline sagittal structures are normal. VENTRICLES: There is moderate age-related global parenchymal volume loss and proportionate enlargement of the ventricles and cortical sulci. CALVARIUM: There is no calvarial fracture or extracranial soft tissue swelling. PARANASAL SINUSES: There is mild polypoid mucosal thickening in the right maxillary sinus and minimal mucosal thickening in the right frontal sinus. Remaining included paranasal sinuses are clear MASTOID AIR CELLS: Predominantly clear. OTHER FINDINGS: None. IMPRESSION: No acute intracranial abnormality. Moderate age-related global parenchymal volume loss.
[2018-08-27 16:50] VITALS: BP 128/91; PULSE 74
--- NOTE | 2018-08-27 18:29 | PN ---
DATE: 08/27/2018 SUBJECTIVE: This 67-year-old male sitting in the group area on the psychiatric unit. He is currently being followed for bipolar disorder. The patient states that he feels when he stands up a little unsteady, but denies any headache, dizziness. Nursing staff relates that there were no problems during the night. PHYSICAL EXAMINATION: VITAL SIGNS: This morning his temperature is 98.3. His blood pressure is 91/59, pulse is 77, respiratory rate is 18. HEART: S1, S2 rhythm. LUNGS: Lungs: Clear. ABDOMEN: Soft with positive bowel sounds. EXTREMITIES: No evidence of edema. ASSESSMENT AND PLAN: I have discussed the clinical setting with Dr. Lopez and will give us Neurology evaluation for this patient. He is completed a course of antibiotics for urinary tract infection and he has scheduled to see upon discharge to follow up with urologist in the outpatient side for a urinary retention and he is aware of all the clinical findings. At this point, he will discussed these findings with the staff as well as with Dr. Lopez and the patient the patient's agreement. We will await results from Neurology. Marielos Lamb MD
--- NOTE | 2018-08-27 22:01 | CON ---
DATE: 08/27/2018 HISTORY OF PRESENT ILLNESS: This is a 67-year-old male who recently had pyuria and microhematuria, was seen by Dr. Toney, and at this point, the patient is in the psych floor with bipolar and the patient has a difficulty in ambulating and feels wobbly at times and called to evaluate the patient. PAST MEDICAL HISTORY: Status post laminectomy many years ago and called to evaluate the patient and the patient does state that he lost his balance during the night while he was in the bathroom and also dizzy at times and on examination past medical history as above. SOCIAL HISTORY: He does not smoke, does not drink, and lives alone. PHYSICAL EXAMINATION: HEENT: Normocephalic and atraumatic. NECK: Supple. NEUROLOGIC: Alert, awake, and orientated x3. No aphasia. Cranial nerve II through XII are tested. Pupils reactive. EOM intact. Visual field full. No facial asymmetry. Tongue midline. Motor examination; moves all the extremities equally. Tone normal. Deep tendon reflexes 1+. Both plantars are downgoing. Sensory appears intact. Cerebellar gait normal. IMPRESSION AND PLAN: Bipolar disorder with some gait difficulty. I ordered a CAT scan of the head without contrast. Continue present management. We will follow up. Roger Cleary MD
--- NOTE | 2018-08-28 08:16 | DS ---
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 He had been discharged home today with an improvement of this behavioral complex although still with some semblance of these traits which are considered to be enduring. He was able to offer some critique of his behavior and some indication that he would try to modify it in his own and in his community's best interest. Assisting him in this endeavor is the medication he was taking which was gabapentin 300 mg t.i.d. which seemed to be associated with an improvement in his anxiety level and then his neuropathy, and Seroquel 300 mg in the morning and at bedtime which was significantly higher than the 25 mg he was being maintained on for years prior to this admission. He had also been on Flomax 0.4 mg for an enlarged prostate and Protonix 40 mg at bedtime. I had reviewed his situation with Dr. Lamb regarding his complaints after having fallen, but he seems to have not suffered any severe neurologic sequelae as a result of this. A CT scan of the head on the day of his discharge showed no acute intracranial abnormality and moderate age-related global parenchymal volume loss. Blood pressure 128/91, pulse 74, temperature 98.3, respiratory rate 18. Beau Lopez MD/ PhD MTDD
== END 2018-08-27 19:00 | disposition home or self-care (01) | DRG 885 ==
LOC: ED 17:04 → ERH 21:22 → PSYC 22:43
PROVIDERS: ADMIT Psychiatry & Neurology Addiction Medicine; ATTEND Psychiatry & Neurology Addiction Medicine
DX: F31.9 Bipolar disorder, unspecified (principal); N39.0 Urinary tract infection, site not specified; B95.8 Unspecified staphylococcus as the cause of diseases classified elsewhere; R31.29 Other microscopic hematuria; F60.81 Narcissistic personality disorder; F60.0 Paranoid personality disorder; F20.0 Paranoid schizophrenia; M75.102 Unspecified rotator cuff tear or rupture of left shoulder, not specified as traumatic; M75.101 Unspecified rotator cuff tear or rupture of right shoulder, not specified as traumatic; N40.1 Benign prostatic hyperplasia with lower urinary tract symptoms; R33.8 Other retention of urine; G62.9 Polyneuropathy, unspecified; K21.9 Gastro-esophageal reflux disease without esophagitis; Z85.01 Personal history of malignant neoplasm of esophagus; Z90.49 Acquired absence of other specified parts of digestive tract; Z92.21 Personal history of antineoplastic chemotherapy